=== PATIENT | male | born 1940 | race Caucasian/White ===

== ENCOUNTER → 2017-03-28 | Outpatient (CLI) | payer BC ==
[2017-03-28] MEDS: GADOBUTROL 7.5 MMOL/7.5 ML VIAL IV (15:40)
== END | disposition home or self-care (01) ==
LOC: KCIC MRI 14:34
DX: M47.897 Other spondylosis, lumbosacral region (principal); M24.28 Disorder of ligament, vertebrae; Z91.81 History of falling
CPT/HCPCS: 72158; A9585

== ENCOUNTER → 2017-04-18 | Outpatient (CLI) | payer BC ==
[~2017-04-18] MED LIST: BUPIVACAINE MPF 0.25% 10 ML VIAL.; methylPREDNISolone ACETATE 40 MG/ML VIAL.
== END ==
LOC: PNCL 12:42
DX: M79.1 Myalgia (principal); M19.90 Unspecified osteoarthritis, unspecified site; J44.9 Chronic obstructive pulmonary disease, unspecified
CPT/HCPCS: 20553; J1030; J3490

== ENCOUNTER → 2017-04-25 | Outpatient (CLI) | payer BC | END | disposition home or self-care (01) | LOC: KCIC MRI 13:49 | DX: M48.54XA Collapsed vertebra, not elsewhere classified, thoracic region, initial encounter for fracture (principal) | CPT/HCPCS: 72146 ==

== ENCOUNTER → 2017-05-24 | Outpatient (CLI) | payer BC ==
[~2017-05-24] MED LIST changes: -BUPIVACAINE MPF 0.25% 10 ML VIAL.; +IOHEXOL 240 MG/ML 50ML VIAL.; +LIDOCAINE WITH 8.4% SOD BICARB 3 ML DISP.SYRIN.; -methylPREDNISolone ACETATE 40 MG/ML VIAL.
[2017-05-24 08:43] LABS: ADD MAN DIFF? NO
[2017-05-24 08:45] LABS: BASO # 0.1 x10^3/uL (0.0-0.2); BASO % 1 % (0-3); EOS # 0.3 x10^3/uL (0.0-0.7); EOS % 5 % (0-3); HEMATOCRIT 39.5 % (39.0-53.0); HEMOGLOBIN 12.9 g/dL (13.0-17.5); LYMPH # 3.1 x10^3/uL (1.0-4.8); LYMPH % 48 % (24-48); MEAN CORPUSCULAR HEMOGLOBIN 30 pg (25-35); MEAN CORPUSCULAR HGB CONC 33 g/dL (31-37); MEAN CORPUSCULAR VOLUME 92 fL (79-100); MONO # 0.6 x10^3/uL (0.0-1.1); MONO % 9 % (0-9); NEUT # 2.3 x10^3uL (1.8-7.7); NEUT % 37 % (31-73); PLATELET COUNT 224 x10^3/uL (140-400); RED BLOOD COUNT 4.29 x10^6/uL (4.30-5.70); RED CELL DISTRIBUTION WIDTH 13.3 % (11.5-14.5); WHITE BLOOD COUNT 6.3 x10^3/uL (4.0-11.0)
[2017-05-24 08:55] LABS: PROTHROMBIN TIME PATIENT 12.3 SEC (11.7-14.0)
== END | disposition home or self-care (01) ==
LOC: INTRAD 08:18
DX: S22.000A Wedge compression fracture of unspecified thoracic vertebra, initial encounter for closed fracture (principal); X58.XXXA Exposure to other specified factors, initial encounter; Y93.89 Activity, other specified; Y92.89 Other specified places as the place of occurrence of the external cause; Y99.8 Other external cause status
CPT/HCPCS: 36415; 85025; 85610

== ENCOUNTER → 2017-05-30 | Outpatient (CLI) | payer BC ==
[~2017-05-30] MED LIST changes: +IOHEXOL 180 MG/ML 10 ML VIAL.; -IOHEXOL 240 MG/ML 50ML VIAL.; -LIDOCAINE WITH 8.4% SOD BICARB 3 ML DISP.SYRIN.; +methylPREDNISolone ACETATE 40 MG/ML VIAL.; +methylPREDNISolone ACETATE 80 MG/ML VIAL.
== END ==
LOC: PNCL 13:57
DX: S22.069A Unspecified fracture of T7-T8 vertebra, initial encounter for closed fracture (principal); M51.36 Other intervertebral disc degeneration, lumbar region; J44.9 Chronic obstructive pulmonary disease, unspecified; K21.9 Gastro-esophageal reflux disease without esophagitis; X58.XXXA Exposure to other specified factors, initial encounter; Y93.89 Activity, other specified; Y92.89 Other specified places as the place of occurrence of the external cause; Y99.8 Other external cause status
CPT/HCPCS: 62321; J1030; J1040; Q9965

== ENCOUNTER → 2017-06-13 | Outpatient (CLI) | payer BC | END | disposition home or self-care (01) | LOC: PNCL 13:27 | DX: M51.16 Intervertebral disc disorders with radiculopathy, lumbar region (principal); M48.54XA Collapsed vertebra, not elsewhere classified, thoracic region, initial encounter for fracture | CPT/HCPCS: 62323; J1030; J1040; Q9965 ==

== ENCOUNTER → 2017-08-14 | Outpatient (CLI) | payer BC | END | disposition home or self-care (01) | LOC: PNCL 09:32 | DX: M51.16 Intervertebral disc disorders with radiculopathy, lumbar region (principal); M48.54XA Collapsed vertebra, not elsewhere classified, thoracic region, initial encounter for fracture; M79.1 Myalgia; M51.34 Other intervertebral disc degeneration, thoracic region; J44.9 Chronic obstructive pulmonary disease, unspecified; K21.9 Gastro-esophageal reflux disease without esophagitis; Z88.1 Allergy status to other antibiotic agents; Z88.8 Allergy status to other drugs, medicaments and biological substances; Z98.890 Other specified postprocedural states | CPT/HCPCS: 62323; J1030; J1040; Q9965 ==

== ENCOUNTER 2017-11-09 19:49 | Emergency (ER) | payer BC ==
[~2017-11-09] VITALS: Ht 182.9 cm; Wt 79.4 kg
[~2017-11-09 19:49] MED LIST changes: +BUDE10.2 IH; +CARB15DR3 EACHEYE; +CHOL500016 PO; +FINA5TAB PO; +FLUT9.9S NS; -IOHEXOL 180 MG/ML 10 ML VIAL.; +LATA2.5D3 EACHEYE; +MELA5TAB21 PO; +MELO15TA23 PO; +MULT1TAB52 PO; +OMEP20CA9 PO; +POLY119P19 PO; +PRAV40TA PO; +RANI150T2 PO; +TAMS0.4C2 PO; +TIZA4TAB PO; +TRAM50TA PO; +VENTOLIN HFA18 GM INH; +VITA100020 PO; -methylPREDNISolone ACETATE 40 MG/ML VIAL.; -methylPREDNISolone ACETATE 80 MG/ML VIAL.
[2017-11-09] MEDS ORDERED: MECLIZINE HCL 12.5 MG TABLET. PO ONE (20:30)
[2017-11-09] MEDS ORDERED: ONDANSETRON PF 4 MG/2 ML VIAL. IV ONE (20:30)
[2017-11-09] MEDS ORDERED: IV NORMAL SALINE 1000ML BAG 1,000 ML IV ONE (20:30)
[2017-11-09 20:33] LABS: BASO # 0.1 x10^3/uL (0.0-0.2); BASO % 0 % (0-3); EOS # 0.1 x10^3/uL (0.0-0.7); EOS % 1 % (0-3); HEMATOCRIT 40.2 % (39.0-53.0); HEMOGLOBIN 13.4 g/dL (13.0-17.5); LYMPH # 2.4 x10^3/uL (1.0-4.8); LYMPH % 16 % (24-48); MEAN CORPUSCULAR HEMOGLOBIN 31 pg (25-35); MEAN CORPUSCULAR HGB CONC 33 g/dL (31-37); MEAN CORPUSCULAR VOLUME 93 fL (79-100); MONO % 7 % (0-9); NEUT # 11.4 x10^3uL (1.8-7.7); NEUT % 76 % (31-73); PLATELET COUNT 207 x10^3/uL (140-400); RED BLOOD COUNT 4.31 x10^6/uL (4.30-5.70); RED CELL DISTRIBUTION WIDTH 13.4 % (11.5-14.5)
[2017-11-09 20:55] LABS: CALCIUM 9.6 mg/dL (8.5-10.1); CREATININE 1.2 mg/dL (0.7-1.3); GFR 58.7; POTASSIUM 3.8 mmol/L (3.5-5.1)
[2017-11-09 21:00] LABS: ALBUMIN 4.2 g/dL (3.4-5.0); ALBUMIN/GLOBULIN RATIO 1.4 (1.0-1.7); TOTAL BILIRUBIN 0.7 mg/dL (0.2-1.0); TOTAL PROTEIN 7.3 g/dL (6.4-8.2)
[2017-11-09] MEDS ORDERED: KETOROLAC 15 MG/ML VIAL. IV ONE (21:30)
--- NOTE | 2017-11-09 21:51 | EKG ---
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
--- NOTE | 2017-11-09 22:03 | PHYS DOC ---
Past Medical History Past Medical History: COPD, GERD, High Cholesterol Past Surgical History: Other Additional Past Surgical Histo: SINUS, HERNIA, EGC, ESPHAGEAL STRETCHING Alcohol Use: None Drug Use: None Adult General Chief Complaint Chief Complaint: DIZZY/LIGHT HEADED HPI HPI Patient is a 76-year-old male who presents with complaint of dizziness, stating that he feels just off balance. He states that earlier today he had some episodes of nausea and vomiting and he states that right after his first episode of vomiting he noticed that he was very dizzy, feeling off balance. He denies any loss of consciousness. He states that the dizziness is worsened with change of position, especially with ambulation. He also indicates the dizziness is worsened with rapidly turning his head. He denies any chest pain or shortness of breath. He does admit to mild headache. He states that he has had purulent nasal discharge for quite some time, stating that his been at least several weeks. Review of Systems Review of Systems Constitutional: Denies fever or chills [] Eyes: Denies change in visual acuity, redness, or eye pain [] Respiratory: Denies cough or shortness of breath [] Cardiovascular: Denies chest pain[] GI: Denies abdominal pain. Complains of nausea and vomiting.[] Musculoskeletal: Patient complains of chronic muscle aches[] Neurologic: Complains of dizziness[] All other systems were reviewed and found to be within normal limits, except as documented in this note. Current Medications Current Medications Current Medications Medications (Trade) Dose Ordered Sig/Patti Start Time Stop Time Status Last Admin Dose Admin Amoxicillin/ Clavulanate Potassium (Augmentin 875/ 125mg) 1 tab 1X ONCE 11/09/17 22:30 11/09/17 22:31 DC 11/09/17 22:38 1 TAB Ketorolac Tromethamine (Toradol) 15 mg 1X ONCE 11/09/17 21:30 11/09/17 21:31 DC 11/09/17 21:25 15 MG Meclizine HCl (Antivert) 25 mg 1X ONCE 11/09/17 20:30 11/09/17 20:32 DC 11/09/17 20:41 25 MG Ondansetron HCl (Zofran) 4 mg 1X ONCE 11/09/17 20:30 11/09/17 20:32 DC 11/09/17 20:41 4 MG Sodium Chloride 1,000 ml @ 1,000 mls/hr 1X ONCE 11/09/17 20:30 11/09/17 21:29 DC 11/09/17 20:41 1,000 MLS/HR Tramadol HCl (Ultram) 50 mg 1X ONCE 11/09/17 22:30 11/09/17 22:31 DC 11/09/17 22:38 50 MG Allergies Allergies Allergies Coded Allergies Type Severity Reaction Last Updated Verified Sulfa (Sulfonamide Antibiotics) Allergy Intermediate Hives 05/24/17 Yes niacin Allergy Intermediate Hives 05/24/17 Yes Physical Exam Physical Exam Constitutional: Well developed, well nourished, no acute distress, non-toxic appearance. [] HENT: Normocephalic, atraumatic, bilateral external ears normal, oropharynx moist, no oral exudates, nose normal. Tender to percussion of frontal sinuses.[] Eyes: PERRLA, EOMI, conjunctiva normal, no discharge. [] Neck: Normal range of motion, no tenderness, supple, no stridor. [] Cardiovascular:Heart rate regular rhythm [] Lungs & Thorax: Bilateral breath sounds clear to auscultation [] Abdomen: Bowel sounds normal, soft, no tenderness. [] Skin: Warm, dry, no erythema, no rash. [] Extremities: No tenderness, no cyanosis, no clubbing, ROM intact, no edema. [] Neurologic: Alert and oriented X 3, normal motor function, normal sensory function, no focal deficits noted. [] Current Patient Data Vital Signs Vital Signs Date Time Temp Pulse Resp B/P (MAP) Pulse Ox O2 Delivery O2 Flow Rate FiO2 11/09/17 22:13 75 18 95 11/09/17 20:05 99.3 133/58 (83) Room Air 99.3 Lab Values Laboratory Tests Test 11/09/17 20:20 White Blood Count 15.0 x10^3/uL (4.0-11.0) H Red Blood Count 4.31 x10^6/uL (4.30-5.70) Hemoglobin 13.4 g/dL (13.0-17.5) Hematocrit 40.2 % (39.0-53.0) Mean Corpuscular Volume 93 fL (79-100) Mean Corpuscular Hemoglobin 31 pg (25-35) Mean Corpuscular Hemoglobin Concent 33 g/dL (31-37) Red Cell Distribution Width 13.4 % (11.5-14.5) Platelet Count 207 x10^3/uL (140-400) Neutrophils (%) (Auto) 76 % (31-73) H Lymphocytes (%) (Auto) 16 % (24-48) L Monocytes (%) (Auto) 7 % (0-9) Eosinophils (%) (Auto) 1 % (0-3) Basophils (%) (Auto) 0 % (0-3) Neutrophils # (Auto) 11.4 x10^3uL (1.8-7.7) H Lymphocytes # (Auto) 2.4 x10^3/uL (1.0-4.8) Monocytes # (Auto) 1.0 x10^3/uL (0.0-1.1) Eosinophils # (Auto) 0.1 x10^3/uL (0.0-0.7) Basophils # (Auto) 0.1 x10^3/uL (0.0-0.2) Sodium Level 136 mmol/L (136-145) Potassium Level 3.8 mmol/L (3.5-5.1) Chloride Level 100 mmol/L (98-107) Carbon Dioxide Level 27 mmol/L (21-32) Anion Gap 9 (6-14) Blood Urea Nitrogen 10 mg/dL (8-26) Creatinine 1.2 mg/dL (0.7-1.3) Estimated GFR (Cockcroft-Gault) 58.7 BUN/Creatinine Ratio 8 (6-20) Glucose Level 121 mg/dL (70-99) H Calcium Level 9.6 mg/dL (8.5-10.1) Magnesium Level 2.0 mg/dL (1.8-2.4) Total Bilirubin 0.7 mg/dL (0.2-1.0) Aspartate Amino Transferase (AST) 19 U/L (15-37) Alanine Aminotransferase (ALT) 20 U/L (16-63) Alkaline Phosphatase 75 U/L (46-116) Creatine Kinase 204 U/L (39-308) Troponin I Quantitative < 0.017 ng/mL (0.000-0.055) Total Protein 7.3 g/dL (6.4-8.2) Albumin 4.2 g/dL (3.4-5.0) Albumin/Globulin Ratio 1.4 (1.0-1.7) Laboratory Tests 11/09/17 20:20 Laboratory Tests 11/09/17 20:20 EKG EKG [] Interpretation Time: EKG demonstrates a normal sinus rhythm with rate of 83. No ST segment abnormalities are noted. Radiology/Procedures Radiology/Procedures [] Impressions: Chest x-ray demonstrates no acute process. Course & Med Decision Making Course & Med Decision Making Pertinent Labs and Imaging studies reviewed. (See chart for details) [] Dragon Disclaimer Dragon Disclaimer This electronic medical record was generated, in whole or in part, using a voice recognition dictation system. Departure Departure Impression: Primary Impression: Sinusitis Additional Impression: Vertigo Disposition: HOME, SELF-CARE Condition: STABLE Referrals: PEGGY MCCLOUD MD (PCP) Patient Instructions: Sinusitis, Vertigo Additional Instructions: Take prescribed medications as directed and follow-up with your primary care provider in the next few days. Scripts Amoxicillin/Potassium Clav (AUGMENTIN 875-125 TABLET) 1 Each Tablet 1 TAB PO BID, #20 TAB Prov: MELO BECK Jr. DO 11/09/17 Meclizine Hcl (MECLIZINE HCL) 25 Mg Tablet 25 MG PO PRN TID PRN for DIZZINESS, #30 dizziness Prov: MELO BECK Jr. DO 11/09/17 Ondansetron Hcl (ZOFRAN) 4 Mg Tablet 4 MG PO PRN TID PRN for NAUSEA/VOMITING, #15 nausea/vomiting Prov: MELO BECK Jr. DO 11/09/17 Problem Qualifiers Primary Impression: Sinusitis Sinusitis location: frontal Chronicity: unspecified Qualified Codes: J32.1 - Chronic frontal sinusitis MELO BECK Jr. DO Nov 09, 2017 22:03
--- NOTE | 2017-11-09 22:06 | RAD ---
AP chest. HISTORY: Dizziness, near syncope AP view was taken of the chest. There is mild scoliosis and degenerative change in the spine. The patient is rotated to the left. There is no effusion. Heart is normal in size. There are no confluent areas of infiltrate. IMPRESSION: 1. No confluent infiltrates. Electronically signed by: Patricio Ocampo MD (11/09/2017 10:03 PM) [facility]
[2017-11-09] MEDS ORDERED: AMOXICILLIN/K CLAV 875/125MG TABLET. PO ONE (22:30)
[2017-11-09] MEDS ORDERED: traMADol 50 MG TABLET PO ONE (22:30)
[2017-11-09 22:43] VITALS: BP 140/79
[2017-11-09] MEDS ORDERED: MECL25TA3 PO (22:54)
[2017-11-09] MEDS ORDERED: ONDA4TAB7 PO (22:54)
[2017-11-09] MEDS ORDERED: AMOX1TAB61 PO (22:54)
== END 2017-11-09 23:00 | disposition home or self-care (01) ==
LOC: ER 19:49
DX: J32.1 Chronic frontal sinusitis (principal); R42 Dizziness and giddiness; K21.9 Gastro-esophageal reflux disease without esophagitis; J44.9 Chronic obstructive pulmonary disease, unspecified; E78.00 Pure hypercholesterolemia, unspecified; Z88.1 Allergy status to other antibiotic agents; Z88.2 Allergy status to sulfonamides
CPT/HCPCS: 36415; 71045; 80053; 82550; 83735; 84484; 85025; 93005; 96361; 96374; 96375; 99285; J1885; J2405; J7030; J8597

== ENCOUNTER → 2018-07-09 | Outpatient (CLI) | payer BC ==
[~2018-07-09] MED LIST changes: +AMOX1TAB61 PO; +IOHEXOL 180 MG/ML 10 ML VIAL. ONE; +MECL25TA3 PO; +OMEP20CA10 PO; -OMEP20CA9 PO; +ONDA4TAB7 PO; +methylPREDNISolone ACETATE 40 MG/ML VIAL. ONE; +methylPREDNISolone ACETATE 80 MG/ML VIAL. ONE
--- NOTE | 2018-07-09 23:15 | PAIN ---
DATE OF SERVICE: 07/09/2018 DIAGNOSES: 1. Thoracic compression fracture with thoracic degenerative disk disease. 2. Lumbar radiculopathy with lumbar degenerative disk disease. HISTORY OF PRESENT ILLNESS: The patient is still a 77-year-old male, who returns for followup, last seen 08/14/2017. The patient did very well after 3 epidural injections since last winter and spring and summer. The patient reports about 80% improvement for about 10 months after the last injection. Pain is returning now in the low back, right lower extremity, posterior gluteus, posterior thigh, posterior calf. The patient reports it is a 10 on a scale of 10 at its worst, 9 on average, 7 at its least, sharp, stabbing, becoming more constant, worse with walking, standing, changing positions, better with sitting or lying down, awakens him from sleep occasionally, but only over the past month or so in about every 6-7 hours. The patient reports he is increasing his distance walking, doing activities at home, traveling with greater ease and comfort, sleeping better until the last few weeks when the pain has returned. The patient reports no new motor or sensory deficits, no new bowel or bladder incontinence or other complaints. PHYSICAL EXAMINATION: VITAL SIGNS: The patient's blood pressure 120/65, pulse 71, respirations are 20, temperature is 98.0 degrees Fahrenheit, height is 5 feet 11 inches, weight is 179 pounds. GENERAL: The patient is awake, alert, oriented, appropriate, very pleasant demeanor. HEENT: Shows normocephalic, atraumatic. Extraocular movements intact and symmetrical. Oral cavity: Mucous membranes are moist and pink. Dentition is intact. NECK: Shows anterior throat supple without palpable lymphadenopathy noted. Swallow reflex is symmetrical. CHEST: Shows normal on inspection. Breath sounds are clear to auscultation bilaterally. HEART: Shows S1, S2 clear. No murmurs auscultated. ABDOMEN: Soft, nontender, nondistended. No palpable organomegaly is noted. No rebound or guarding demonstrated. BACK: Shows spine grossly in the midline. Normal appearing thoracic kyphosis and lumbar lordotic curvature. Lumbar paraspinous muscle shows symmetrical on inspection. On palpation shows some moderate tenderness diffusely throughout the upper, middle and lower distribution of paraspinous muscles, but only diffusely without radiation. The patient has good rotational motion both laterally greater than 10 degrees right and left as well as extension greater than 10 degrees, forward flexion 45 degrees without significant pain reported. EXTREMITIES: The patient's lower extremities show deep tendon reflexes 1+ in the patellar and tendo calcaneus tendons are equal. Motor exam is strong with 5/5 dorsiflexion, extension, quadriceps and hamstring flexion and symmetrical. Peripheral pulses are 1+ in the posterior tibia. No peripheral edema is noted bilaterally. Options were discussed with the patient. The patient's old chart was reviewed as was his current medication regimen updated. Current review of systems is updated today as well. We will proceed with the first in the series of lumbar epidural steroid injection today with fluoroscopic guidance. Risks were again discussed including, but not limited to bleeding, infection, possibility of epidural hematoma, subsequent neurological compromise, dural puncture, headaches, spinal cord and/or nerve damage, side effects of steroid medication and poor results regarding pain control. The patient understands and wished to proceed. The patient will return to the clinic in approximately 2 weeks for followup, was counseled on return appointment, activity level, and side effects to be aware of. DIAGNOSIS: Lumbar degenerative disk disease with lumbosacral radiculopathy. PROCEDURE: Lumbar epidural steroid injection, translaminar approach at L5-S1 level using C-arm fluoroscopic guidance under sterile prep and drape using local anesthetic. MEDICATION INJECTED: A total of 120 mg Depo-Medrol plus 10 mL of preservative-free firm saline and 2 mL of contrast. CONDITION AT DISCHARGE: Stable. The patient tolerated the procedure well, had no complications. MARY ANN STANTON MD DR: KIESHA/steve JOB#: [id number] / [id number]
== END | disposition home or self-care (01) ==
LOC: PNCL 10:09
PROVIDERS: ATTEND Anesthesiology
DX: M51.16 Intervertebral disc disorders with radiculopathy, lumbar region (principal); M51.14 Intervertebral disc disorders with radiculopathy, thoracic region; M48.54XA Collapsed vertebra, not elsewhere classified, thoracic region, initial encounter for fracture; Z88.2 Allergy status to sulfonamides; Z88.1 Allergy status to other antibiotic agents
CPT/HCPCS: 62323; J1030; J1040; Q9965

== ENCOUNTER → 2018-11-11 | Outpatient (CLI) | payer BC ==
[2018-09-23 11:05] VITALS: BP 126/69
[~2018-11-11] MED LIST changes: +APIX5TAB PO; -IOHEXOL 180 MG/ML 10 ML VIAL. ONE; +METO25TA4 PO; -TIZA4TAB PO; +TIZA4TAB2 PO; -methylPREDNISolone ACETATE 40 MG/ML VIAL. ONE; -methylPREDNISolone ACETATE 80 MG/ML VIAL. ONE
--- NOTE | 2018-11-11 12:37 | PN ---
DATE: 11/11/2018 PROGRESS NOTE FOR PAIN CLINIC DIAGNOSES: 1. Thoracic compression fracture with degenerative disk disease, thoracic spine. 2. Myofascial pain. 3. Lumbar radiculopathy with lumbar degenerative disk disease. HISTORY OF PRESENT ILLNESS: The patient is a 77-year-old male who returns for followup status post lumbar epidural steroid injection, most recently on 07/09/2018. The patient reports he did very well with this and had about 80% improvement until about 2 weeks ago, the patient was unloading a linoleum tile floor layer from his truck and the linoleum tile floor layer weight got away from him and it flipped him over onto his back as he fell on the ground on his right side. The patient reports the pain returned in his low back about a day later and radiating to posterior gluteus, posterior thigh, posterior calf, as it was previously similar to that prior to his last injection. The patient reports the pain at 9 on a scale of 10 at its worst in the past week, 8 on average, 5 at its least and is at 5 today. The patient reports it is sharp, stabbing, shooting, and becoming severe with weightbearing, standing and walking. The patient reports otherwise doing better with sitting or lying down, does not awaken him from sleep at night. No new motor or sensory deficits or other complaints. Again, was doing very well until he fell. PHYSICAL EXAMINATION: VITAL SIGNS: The patient's blood pressure 107/53, pulse 58, respirations 18, temperature 98.2 degrees Fahrenheit, height is 5 feet 11 inches, weight is 175 pounds. GENERAL: The patient is awake, alert, oriented, appropriate, very pleasant demeanor. HEENT: Shows normocephalic, atraumatic. The patient wears eye glasses. Extraocular movements are intact and symmetrical. Oral cavity: Mucous membranes are moist and pink. Dentition is intact. NECK: Shows anterior throat supple without palpable lymphadenopathy noted. Swallow reflex symmetrical. CHEST: Shows normal on inspection. Breath sounds are clear to auscultation bilaterally. HEART: Shows S1, S2 clear. No murmurs auscultated. ABDOMEN: Soft, nontender, nondistended. No palpable organomegaly is noted. No rebound or guarding demonstrated. BACK: Shows spine grossly in the midline. Normal appearing thoracic kyphosis and minor flattening of lumbar lordotic curvature. Lumbar paraspinous muscle shows symmetrical on inspection. On palpation shows some moderate tenderness diffusely bilaterally, but only diffusely without radiation. The patient has good rotational motion of lumbar spine, both laterally as well as extension and flexion without difficulty. EXTREMITIES: Lower extremities show deep tendon reflexes at 1+ in the patellar and tendo calcaneus tendons. Motor exam is approximately 5 on a scale of 5 and equal dorsiflexion, extension, quadriceps and hamstring flexion. Peripheral pulses are 1+ posterior tibial. No peripheral edema is noted. Options were discussed with the patient. The patient's old chart was reviewed as his current medication regimen updated. Current review of systems updated today as well. We will check with the patient's primary physician as he has been recently put on Eliquis about 3 weeks ago by his report and see if it is safe to hold this for about 3 days prior to potential lumbar epidural steroid injection. He has done very well with these. We will wait for preapproval with his primary physician regarding holding the Eliquis. I will have return potentially after that for lumbar epidural steroid injection. The patient understands and agrees and will follow up as scheduled. MARY ANN STANTON MD DR: KIESHA/steve JOB#: [id number] / [id number]
== END | disposition home or self-care (01) ==
LOC: PNCL 08:31
PROVIDERS: ATTEND Anesthesiology
DX: M51.16 Intervertebral disc disorders with radiculopathy, lumbar region (principal); M51.34 Other intervertebral disc degeneration, thoracic region; M48.54XA Collapsed vertebra, not elsewhere classified, thoracic region, initial encounter for fracture; M54.5 Low back pain; M79.18 Myalgia, other site
CPT/HCPCS: G0463

== ENCOUNTER → 2018-11-25 | Outpatient (CLI) | payer BC ==
[2018-09-23 11:05] VITALS: BP 126/69
[~2018-11-25] MED LIST changes: +IOHEXOL 180 MG/ML 10 ML VIAL. ONE; +methylPREDNISolone ACETATE 40 MG/ML VIAL. ONE; +methylPREDNISolone ACETATE 80 MG/ML VIAL. ONE
--- NOTE | 2018-11-25 23:59 | PAIN ---
DATE OF SERVICE: 11/25/2018 PROGRESS NOTE FOR PAIN CLINIC DIAGNOSES: 1. Thoracic compression fracture T7 with thoracic degenerative disease. 2. Myofascial pain. 3. Lumbar radiculopathy with lumbar degenerative disk disease. HISTORY OF PRESENT ILLNESS: This is a 77-year-old male who returns for followup status post lumbar epidural steroid injection x 1 on 07/09/2018. The patient reports about 80% improvement in the pain. The pain is returning now. 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 The patient reports pain in low back into the right greater than left lower extremity, posterior gluteus, posterior thigh and calf, worse with walking, standing, changing positions, better with sitting or lying down. The patient reports it has been awakening him from sleep occasionally, but most nights, he sleeps fairly well. The patient reports it is worse with walking and standing. The patient rates his pain as a 9 on a scale of 10 at its worst, 9 on average, 3 at its least when he is sitting and is a 3 today. The patient reports it is sharp, stabbing, constant, on and off in intensity with sitting and walking being more painful with walking and less with sitting. The patient reports no new motor or sensory deficits, no new bowel or bladder incontinence or other complaints. PHYSICAL EXAMINATION: VITAL SIGNS: The patient's blood pressure 112/69, pulse 52, respirations are 18, temperature 98.0 degrees Fahrenheit, height is 5 feet 11 inches, weight is 174 pounds. GENERAL: The patient is awake, alert, oriented, appropriate, very pleasant demeanor. HEENT: Shows normocephalic, atraumatic. Extraocular movements are intact and symmetrical. Oral cavity: Mucous membranes moist and pink. Dentition is intact. The patient is wearing eyeglasses. NECK: Shows anterior throat supple without palpable lymphadenopathy noted. Swallow reflex symmetrical. CHEST: Shows normal on inspection. Breath sounds are clear to auscultation bilaterally. HEART: Shows S1, S2 clear. No murmurs auscultated. ABDOMEN: Soft, nontender, nondistended. No palpable organomegaly is noted. No rebound or guarding demonstrated. BACK: Shows spine grossly in the midline. Normal-appearing thoracic kyphosis, some minor flattening of lumbar lordotic curvature. Lumbar paraspinous muscle shows symmetrical on inspection, with palpation shows some moderate tenderness diffusely throughout the upper, middle and lower distribution of paraspinous muscles, but only diffusely without radiation, without asymmetry or trigger points. No radiation of pain with rotational motion, which is performed greater than 10 degrees right and left as well as extension greater than 10 degrees, forward flexion 40 degrees without difficulty. EXTREMITIES: Lower extremities show deep tendon reflexes 1+ in the patellar and tendoalcaneus tendons. Motor exam is approximately 5/5, but symmetrical with dorsiflexion, extension, quadriceps and hamstring flexion. Peripheral pulses are 1+ posterior tibia. No peripheral edema is noted bilaterally. Options were discussed with the patient. The patient's old chart was reviewed as his current medication regimen updated. Current review of systems updated today as well. We will proceed with a lumbar epidural steroid injection, second in the series, with fluoroscopic guidance today. Risks were again discussed including, but not limited to bleeding, infection, possibility of epidural hematoma, subsequent neurologic compromise, dural puncture, headaches, spinal cord and/or nerve damage, side effects of steroid medication and poor results regarding pain control. The patient understands and wished to proceed. The patient will return to clinic in approximately 2 weeks for followup. She was counseled on return appointment, activity level and side effects to be aware of. DIAGNOSIS: Lumbar radiculopathy with lumbar degenerative disk disease. PROCEDURE: Lumbar epidural steroid injection, translaminar approach L5-S1 level using C-arm fluoroscopic guidance under sterile prep and drape using local anesthetic. MEDICATION INJECTED: A total of 120 mg Depo-Medrol plus 10 mL of preservative-free normal saline and 2 mL of contrast. CONDITION AT DISCHARGE: Stable. The patient tolerated procedure well, had no complications. MARY ANN STANTON MD DR: KIESHA/steve JOB#: [id number] / [id number]
== END ==
LOC: PNCL 14:10
PROVIDERS: ATTEND Anesthesiology
DX: M51.16 Intervertebral disc disorders with radiculopathy, lumbar region (principal); M51.34 Other intervertebral disc degeneration, thoracic region
CPT/HCPCS: 62323; J1030; J1040; Q9965

== ENCOUNTER → 2019-01-19 | Outpatient (CLI) | payer BC ==
[2018-09-23 11:05] VITALS: BP 126/69
[~2019-01-19] MED LIST changes: -IOHEXOL 180 MG/ML 10 ML VIAL. ONE; +REGADENOSON 0.4 MG/5 ML DISP.SYRIN. IV ONE; -methylPREDNISolone ACETATE 40 MG/ML VIAL. ONE; -methylPREDNISolone ACETATE 80 MG/ML VIAL. ONE
--- NOTE | 2019-01-19 14:45 | RAD ---
MR#: [id number] Date of Study: 01/19/2019 Ordering Physician: ALYSHA HOLDER Referring Physician: JUAN RAMON BRYANT Tech: RT Alyce (Yeni) (N) APPROVED REPORT Test Type: Pharmacological Stress Nurse/Tech: Yulissa Olmos R.N. Test Indications: elevated troponin Cardiac History: Afib,htn Medications: See Electronic Medical Record Medical History: See Electronic Medical Record Resting ECG: SB w/ tall T waves Resting Heart Rate: 58 bpm Resting Blood Pressure: 145/70mmHg Pretest Chest Pain: No chest pain Nurse/Tech Notes S1S2, lungs wheezing on left side. Consent: The procedure was explained to the patient in lay terms. Informed consent was witnessed. Bhavik eout was entered into [employer]. History and Stress Test performed by SANYA Whitley Pharm. Details Pharmacologic stress testing was performed using 0.4mg per 5ml of regadenoson given intravenously ove r 7-10 seconds. Stress Symptoms SOA, stomach cramping POST EXERCISE Reason for Termination: Infusion complete Max HR: 86 bpm Max Blood Pressure: 130/57mmHg Blood Pressure response to exercise: Normal blood pressure response during stress. Heart Rate response to exercise: wnl Chest Pain: No. Arrhythmia: No. ST Change: No. INTERPRETATION Stress EKG Conclusion: Baseline EKG showed sinus rhythm. No ischemic changes at peak stress. No arr hythmias. Imaging Protocol IMAGE PROTOCOL: Rest Tc-99m/stress Tc-99m 1 day Rest: Stress: Viability: Radiopharm.Tc99m DdzfsoubjMw12i Sestamibi Pnew89bMw 33mCi Duration 15min. 10min. Img Date 01/19/2019 01/19/2019 Inj-Img Wvep30urm. 60min. Rest Admin Site:IV - Left AntecubitalAdministrator:SANYA Whitley Stress Admin Site: IV - Left AntecubitalAdministrator: SANYA Whitley STRESS DATA End Diast. Vol.107.0mlAv. Heart Rate72.0bpm End Syst. Vol.26.0mlCO Index BSA0.0L/min Myocardial Mmkp538.0gEject. Tnmkigil78.0% Stress Rates Pk. Fill Rate2.69EDV/secLVtime Pk. Fill 107.34msec Pk. Empty Rate3.58ESV/secLVtime Pk. Nzifr405.96msec 1/3 Pk. Fill1.76EDV/sec Stress Scores Regional WT0.00Summed WT0.00 Regional WM0.00Summed WM0.00 Study quality was good. Left Ventricular size was Normal at Rest and Stress. Lung uptake was . Left Ventricular ejection fraction is 76%. The rest and stress images show normal perfusion, normal contraction and thickening. LV Perf. Quant 17 Seg. SSS1.00 17 Seg. SRS0.00 17 Seg. SDS1.00 Stress Defect Extent (% LAD)0.00Rest Defect Extent (% LAD)0.00Rev. Defect Extent (% LAD)0.00 Stress Defect Extent (% LCX) 0.00Rest Defect Extent (% LCX)0.00Rev. Defect Extent (% LCX)0.00 Stress Defect Extent (% RCA)0.00Rest Defect Extent (% RCA)0.00Rev. Defect Extent (% RCA)0.00 Stress Defect Extent (% CORRINE)0.00Rest Defect Extent (% CORRINE)0.00Rev. Defect Extent (% CORRINE)0.00 Conclusion 1. Regadenoson cardioisotope stress test did not show any evidence of ischemia or infarct. 2. Normal left ventricular systolic function with ejection fraction calculated at 76%. 3. Low risk for cardiac events. Signed by : Alysha Holder, Electronically Approved : 01/19/2019 14:44:55
== END | disposition home or self-care (01) ==
LOC: NM 09:59
PROVIDERS: ATTEND Internal Medicine Cardiovascular Disease
DX: I25.10 Atherosclerotic heart disease of native coronary artery without angina pectoris (principal); I48.91 Unspecified atrial fibrillation; I10 Essential (primary) hypertension; R79.89 Other specified abnormal findings of blood chemistry
CPT/HCPCS: 78452; 93017; A9500; J2785

== ENCOUNTER → 2019-01-23 | Outpatient (CLI) | payer BC ==
[2018-09-23 11:05] VITALS: BP 126/69
[~2019-01-23] MED LIST changes: +BUPIVACAINE MPF 0.25% 10 ML VIAL. ONE; +DULA0.75 SQ; -REGADENOSON 0.4 MG/5 ML DISP.SYRIN. IV ONE; +methylPREDNISolone ACETATE 40 MG/ML VIAL. ONE
--- NOTE | 2019-01-23 13:01 | PAIN ---
DATE OF SERVICE: 01/23/2019 PROGRESS NOTE FOR PAIN CLINIC DIAGNOSES: 1. Compression fracture T7 with degenerative disk disease, thoracic spine. 2. Myofascial pain. 3. Lumbar radiculopathy with lumbar degenerative disk disease. HISTORY OF PRESENT ILLNESS: The patient is a 78-year-old male who returns for followup status post lumbar epidural steroid injection x 2, most recently 11/25/2018. The patient did about 80% better. The patient reports the pain is returning now but is somewhat different. He has seen his orthopedic surgeon as he is worried about his previous pelvic injury, but new x-ray showed no fractures or displacement. The patient is having some significant pain; however, mostly in the right lower back and hip, but some on the left as well. The patient reports it is worse with walking, standing, changing positions. He is noticing that leaning forward while he is walking is afraid of falling and stumbling. The patient reports it is a stabbing pain, it is aching and sharp in the back itself, constant, unbearable at times walking in the pelvis and low back, middle of the back on the right side as well under his shoulder blade can hurt sometimes when he is walking as well. The patient reports pain is 9 on a scale of 10 at its worst, 8 on average, 5 at its least and is 8 today. The patient reports no loss of motor function, no bowel or bladder incontinence and does not awaken him from sleep at night, much better with lying down. PHYSICAL EXAMINATION: VITAL SIGNS: The patient's blood pressure 115/65, pulse 55, respirations 16, temperature 98.2 degrees Fahrenheit, height is 5 feet 11 inches, weight is 178 pounds. GENERAL: The patient is awake, alert, oriented, appropriate, very pleasant demeanor. HEENT: Head shows normocephalic, atraumatic. Extraocular movements are intact and symmetrical. Oral cavity: Mucous membranes moist and pink. Dentition is intact. NECK: Shows anterior throat supple without palpable lymphadenopathy noted. Swallow reflex symmetrical. CHEST: Shows normal on inspection. Breath sounds are clear bilaterally. HEART: Shows S1, S2 clear. No murmurs auscultated. ABDOMEN: Soft, nontender, nondistended. No palpable organomegaly is noted. No rebound or guarding demonstrated. BACK: Shows spine grossly in the midline, slight increase in thoracic kyphosis and minor flattening of lumbar lordotic curvature. Lumbar paraspinous muscle shows symmetrical on inspection, with palpation, shows some very firm rope-like musculature in the right low lumbar paraspinous muscles consistent with trigger point areas of musculature. This is true into the right gluteus as well as the lateral aspect of the superior aspect of the right iliac crest and just inferior to this. Also, over the posterior superior iliac spine with some mild tenderness, left side shows some moderate tenderness as well in the lumbar paraspinous musculature with rope-like musculature, which is significantly tender as well, but without radiation on either side with palpation. The patient has good rotational motion of lumbar spine, both laterally as well as extension and flexion without significant pain reported. No tenderness over the sacroiliac regions bilaterally or the sacrum. EXTREMITIES: The patient's lower extremities show deep tendon reflexes at 1+ in the patellar and tendo calcaneus tendons. Motor exam is 5/5 with dorsiflexion, extension, quadriceps and hamstring flexion and symmetrical. Peripheral pulses are 1+ posterior tibia. No peripheral edema is noted bilaterally. Options were discussed with the patient. The patient's old chart was reviewed as his current medication regimen updated. Current review of systems updated today as well. We will proceed with trigger point injections of the identified musculature. Risks were again discussed including, but not limited to bleeding, infection, possibility of intravascular injection sequelae, spread of local anesthetic and numbness, side effects of steroid medication and poor results regarding pain control. The patient understands and wished to proceed. The patient will return to clinic in approximately 2 weeks for followup. He was counseled on return appointment interval and side effects to be aware of. The patient will restart Eliquis tomorrow and will be returning for a lumbar epidural steroid injection and hold the Eliquis for 3 days prior to that as well. DIAGNOSIS: Myofascial pain. PROCEDURE: Trigger point injections, bilateral lumbar paraspinous musculature and right gluteus musculature under sterile prep and drape using local anesthetic. MEDICATION INJECTED: A total of 40 mg Depo-Medrol plus a total of 6 mL 0.25% bupivacaine after negative aspiration at each injection site. CONDITION AT DISCHARGE: Stable. The patient tolerated the procedure well, had no complications. MARY ANN STANTON MD DR: Jesse JOB#: [id number] / [id number]
== END ==
LOC: PNCL 11:07
PROVIDERS: ATTEND Anesthesiology
DX: M79.18 Myalgia, other site (principal); M51.16 Intervertebral disc disorders with radiculopathy, lumbar region; M48.54XA Collapsed vertebra, not elsewhere classified, thoracic region, initial encounter for fracture; M51.34 Other intervertebral disc degeneration, thoracic region
CPT/HCPCS: 20553; J1030; J3490

== ENCOUNTER → 2019-01-29 | Outpatient (CLI) | payer BC ==
[2018-09-23 11:05] VITALS: BP 126/69
[~2019-01-29] MED LIST changes: -BUPIVACAINE MPF 0.25% 10 ML VIAL. ONE; +IOHEXOL 180 MG/ML 10 ML VIAL. ONE; +methylPREDNISolone ACETATE 80 MG/ML VIAL. ONE
--- NOTE | 2019-01-29 10:35 | PAIN ---
DATE OF SERVICE: 01/29/2019 PROGRESS NOTE FOR PAIN CLINIC DIAGNOSES: 1. Compression fracture, T7. 2. Myofascial pain. 3. Lumbar radiculopathy with lumbar degenerative disk disease. SUBJECTIVE: The patient is a 78-year-old male who returns for followup status post lumbar epidural steroid injections x 2 and trigger point injections on his last visit. The patient reports about 90% improvement after the injections at his last visit, but the pain is now returning in the low back and right lower extremity as it was previously. We discussed on his last visit for his return today for potential third lumbar epidural steroid injection and indeed he is having some radicular pain in the posterior gluteus, posterior thigh and even into the calf at times on the right side. The patient reports it is stabbing, sharp, constant at times with standing or walking, better with sitting or lying down, does not awaken him from sleep at night. The patient rates his pain as a 9 on a scale of 10 at its worst over the past week, 9 on average, 3 at its least and is a 9 today. The patient reports no new motor or sensory deficits, no bowel or bladder incontinence or other complaints. PHYSICAL EXAMINATION: VITAL SIGNS: The patient's blood pressure is 118/78, pulse is 77, respirations are 18, temperature is 98.3 degrees Fahrenheit. Height is 5 feet 11 inches. Weight is 173 pounds. GENERAL: The patient is awake, alert, oriented, appropriate, very pleasant demeanor. HEENT: Shows normocephalic, atraumatic. Extraocular movements are intact and symmetrical. Oral cavity: Mucous membranes moist and pink. Dentition is intact. NECK: Shows anterior throat supple without palpable lymphadenopathy noted. Swallow reflex symmetrical. CHEST: Shows normal on inspection. Breath sounds are clear to auscultation bilaterally. HEART: Shows S1 and S2 clear. No murmurs auscultated. ABDOMEN: Soft, nontender, nondistended. No palpable organomegaly is noted. No rebound or guarding demonstrated. BACK: Shows spine grossly in the midline. Normal appearing thoracic kyphosis and lumbar lordotic curvature. Lumbar paraspinous muscle shows symmetrical on inspection, on palpation shows some moderate tenderness diffusely, but only diffusely without significant radiation. The patient has good rotational motion of the lumbar spine without significant pain with right and left rotation as well as extension and flexion without significant difficulty. EXTREMITIES: The patient's lower extremities showed deep tendon reflexes 1+ in the patellar and tendo calcaneus tendons. Motor exam is strong with 5/5 dorsiflexion, extension, quadriceps and hamstring flexion and symmetrical. Peripheral pulses are 1+ to posterior tibia. No peripheral edema is noted. Options were discussed with the patient. The patient's old chart was reviewed as his current medication regimen updated. Current review of systems updated today as well. We will proceed with a third in the series of lumbar epidural steroid injection today with fluoroscopic guidance. Risks were again discussed including but not limited to bleeding, infection, possibility of epidural hematoma, subsequent neurologic compromise, dural puncture, headaches, spinal cord and/or nerve damage, side effects of steroid medication and poor results regarding pain control. The patient understands and wished to proceed. The patient will return to clinic in approximately 2 weeks for followup. He was counseled on return appointment, activity level and side effects to be aware of. DIAGNOSIS: Lumbar radiculopathy with lumbar degenerative disk disease. PROCEDURE: Lumbar epidural steroid injection, translaminar approach L5-S1 level using C-arm fluoroscopic guidance under sterile prep and drape using local anesthetic. MEDICATIONS INJECTED: A total of 120 mg Depo-Medrol plus 10 mL of preservative-free normal saline and 2 mL of contrast. CONDITION AT DISCHARGE: Stable. The patient tolerated procedure well, had no complications. MARY ANN STANTON MD DR: KIESHA/steve JOB#: [id number] / [id number]
== END ==
LOC: PNCL 09:41
PROVIDERS: ATTEND Anesthesiology
DX: M51.16 Intervertebral disc disorders with radiculopathy, lumbar region (principal); M79.18 Myalgia, other site; M48.54XA Collapsed vertebra, not elsewhere classified, thoracic region, initial encounter for fracture
CPT/HCPCS: 62323; J1030; J1040; Q9965

== ENCOUNTER → 2019-05-29 | Outpatient (CLI) | payer BC, OTHER ==
[2018-09-23 11:05] VITALS: BP 126/69
[~2019-05-29] MED LIST changes: -IOHEXOL 180 MG/ML 10 ML VIAL. ONE; +MECL-75 PO; -MECL25TA3 PO; -OMEP20CA10 PO; +OMEP20CA16 PO; -methylPREDNISolone ACETATE 40 MG/ML VIAL. ONE; -methylPREDNISolone ACETATE 80 MG/ML VIAL. ONE
--- NOTE | 2019-05-29 15:46 | KCIC ---
CT CHEST WO CONTRAST Indication: COPD, pulmonary hyperinflation, opacity left lung base Technique: Noncontrast CT imaging was performed of the chest, multiplanar reconstruction images submitted. One or more of the following individualized dose reduction techniques were utilized for this examination: 1. Automated exposure control 2. Adjustment of the mA and/or kV according to patient size 3. Use of iterative reconstruction technique. Comparison: There is no previous chest CT available, correlation made with chest radiograph September 19, 2018 Findings: There is moderate to severe emphysema. There is pleural thickening more posteriorly of the left upper lobe closer to the apex. There is left lower lobe endobronchial density with associated bronchial occlusion and degree of left lower lobe volume loss, best seen on image 40 series 3. More confluent focus of density in this region such as seen on image 40 series 3 measures about 1.7 cm transverse by 1.6 cm AP, some other adjacent foci of endobronchial density present. There is a focus of adjacent nodular appearing density image 42 about 1.7 cm. There is also mild bronchiectasis of the left upper lobe with adjacent likely mild fibrotic change. There is no pneumothorax, significant dependent pleural fluid, pericardial fluid. Heart is deviated to the left. Thoracic aortic caliber is within normal limits. There is compression deformity of the T7 vertebral body of uncertain chronicity. There is some other reticular likely fibrotic change of the left lower lobe. There is small noncalcified right middle lobe nodule along the minor fissure about 0.6 cm image 43 series 3. There are some small foci of branching nodularity of the superior left lower lobe, largest about 0.3 cm. IMPRESSION: 1. There is left lower lobe endobronchial density with bronchial occlusion and degree of volume loss, also focus of nodular density present. While findings could be a component of mucous plugging, endobronchial mass is possible for which PET CT and bronchoscopy is recommended. There is small right middle lobe nodule. There are also some small branching foci of nodularity of the superior left lower lobe which could be due to infectious or inflammatory etiologies. There is emphysema. 2.There is age indeterminate T7 compression deformity. Electronically signed by: Lokesh Ferris MD (05/29/2019 3:43 PM) [id number]
== END ==
LOC: KCIC CT 10:03
PROVIDERS: ATTEND Internal Medicine Pulmonary Disease
DX: J98.4 Other disorders of lung (principal); G95.29 Other cord compression; J44.9 Chronic obstructive pulmonary disease, unspecified
CPT/HCPCS: 71250

== ENCOUNTER → 2019-12-28 | Outpatient (CLI) | payer OTHER ==
[2018-09-23 11:05] VITALS: BP 126/69
[~2019-12-28] MED LIST changes: +MULT-445 PO; -MULT1TAB52 PO
--- NOTE | 2019-12-28 16:35 | KCIC ---
Examination: CT chest without contrast HISTORY: History of opacity left lower lobe of the lung COMPARISON: 05/29/2019 TECHNIQUE: Axial CT images of the chest were performed without contrast. Coronal and sagittal reformats are performed Exposure: One or more of the following individualized dose reduction techniques were utilized for this examination: 1. Automated exposure control 2. Adjustment of the mA and/or kV according to patient size 3. Use of iterative reconstruction technique FINDINGS: Mild cardiomegaly. Coronary artery calcifications. Moderate bilateral lung emphysematous changes. There is pleural thickening identified in the left upper lobe similar to prior exam. There is left lower lobe endobronchial density with the endobronchial occlusion and left lower lobe volume loss similar to prior exam now measuring 3.4 x 2.9 cm (prior 3.1 x 2.9 cm). Mild bronchiectasis bilateral lungs similar to prior exam. Faint tree-in-bud airspace opacities identified in the left upper lobe, left lower lobe, right middle lobe and the right lower lobe of the lung again identified. There is a 6 mm nodule identified in the right middle lobe lung similar to prior exam. The visualized noncontrasted liver, spleen, adrenals grossly appears unremarkable. Moderate degenerative changes thoracic spine. There is moderate compression change of T7 vertebra similar to prior exam. IMPRESSION: 1. Mild increase in size of the endobronchial density with bronchial occlusion of the left lower lobe of the lung. Consider PET-CT and bronchoscopy follow-up can be considered if not done previously. 2. Unchanged 6 mm nodule right middle lobe of the lung. 3. Multiple tree-in-bud airspace opacities identified in the bilateral lungs could be infectious or inflammatory etiology. Follow-up to resolution. Electronically signed by: Gucci Hough MD (12/28/2019 4:32 PM) [place] [id number]
== END | disposition home or self-care (01) ==
LOC: KCIC CT 14:04
PROVIDERS: ATTEND Internal Medicine Pulmonary Disease
DX: R91.1 Solitary pulmonary nodule (principal); J47.9 Bronchiectasis, uncomplicated; J43.9 Emphysema, unspecified
CPT/HCPCS: 71250

== ENCOUNTER 2020-01-01 20:02 | Emergency (ER) | payer OTHER ==
[~2020-01-01] VITALS: Ht 180.3 cm; Wt 80.9 kg
--- NOTE | 2020-01-01 20:15 | PHYS DOC ---
Past Medical History Past Medical History: COPD, GERD, High Cholesterol Past Surgical History: Other Additional Past Surgical Histo: SINUS, HERNIA,ESOPHAGEAL STRETCHING Smoking Status: Never Smoker Alcohol Use: None Drug Use: None General Adult EDM: Chief Complaint: CHEST PAIN HPI: HPI: Patient is a 79 year old male presents with 1 hour of chest pain that began in his thoracic area mostly on the right side that radiates to the front. Pain is 9 out of 10 described as sharp. Patient has some shortness of breath and nausea associated with this. Symptoms are worse with deep breath. Review of Systems: Review of Systems: Constitutional: Denies fever or chills. [] Eyes: Denies change in visual acuity. [] HENT: Denies nasal congestion or sore throat. [] Respiratory: Patient has shortness of breath and a chronic cough Cardiovascular: Denies chest pain or edema. [] GI: Denies abdominal pain, nausea, vomiting, bloody stools or diarrhea. [] : Denies dysuria. [] Musculoskeletal: Denies back pain or joint pain. [] Integument: Denies rash. [] Neurologic: Denies headache, focal weakness or sensory changes. [] Endocrine: Denies polyuria or polydipsia. [] Lymphatic: Denies swollen glands. [] Psychiatric: Denies depression or anxiety. [] Heart Score: HEART Score for Chest Pain: HEART Score for Chest Pain Response (Comments) Value History Moderately Suspicious 1 ECG Nonspecific Repolarizatio 1 Age > 65 2 Risk Factors >3 Risk Factors or Hx CAD 2 Total 6 Risk Factors: Risk Factors: DM, Current or recent (<one month) smoker, HTN, HLP, family history of CAD, obesity. Risk Scores: Score 0 - 3: 2.5% MACE over next 6 weeks - Discharge Home Score 4 - 6: 20.3% MACE over next 6 weeks - Admit for Clinical Observation Score 7 - 10: 72.7% MACE over next 6 weeks - Early Invasive Strategies Allergies: Allergies: Allergies Coded Allergies Type Severity Reaction Last Updated Verified Sulfa (Sulfonamide Antibiotics) Allergy Intermediate Hives 05/24/17 Yes niacin Allergy Intermediate Hives 05/24/17 Yes Physical Exam: PE: Constitutional: Well developed, well nourished, no acute distress, non-toxic appearance. [] HENT: Normocephalic, atraumatic, bilateral external ears normal, no trismus, nose normal. [] Eyes: PERRLA, EOMI, conjunctiva normal, no discharge. [] Neck: Normal range of motion, no tenderness, supple, no stridor. [] Cardiovascular:Heart rate regular rhythm, peripheral pulses intact, cap refill is brisk Lungs & Thorax: Bilateral breath sounds clear, no respiratory distress Abdomen: Bowel sounds normal, soft, no tenderness, no masses, no pulsatile masses. [] Skin: Warm, dry, no erythema, no rash. [] Back: No tenderness, no CVA tenderness. [] Extremities: No tenderness, no cyanosis, no clubbing, ROM intact, no edema. [] Neurologic: Alert and oriented X 3, normal motor function, normal sensory function, no focal deficits noted. [] Psychologic: Affect normal, judgement normal, mood normal. [] Current Patient Data: Labs: Laboratory Tests Test 01/01/20 20:20 White Blood Count 8.9 x10^3/uL Red Blood Count 3.84 x10^6/uL Hemoglobin 12.1 g/dL Hematocrit 35.4 % Mean Corpuscular Volume 92 fL Mean Corpuscular Hemoglobin 32 pg Mean Corpuscular Hemoglobin Concent 34 g/dL Red Cell Distribution Width 13.1 % Platelet Count 203 x10^3/uL Neutrophils (%) (Auto) 50 % Lymphocytes (%) (Auto) 37 % Monocytes (%) (Auto) 8 % Eosinophils (%) (Auto) 4 % Basophils (%) (Auto) 1 % Neutrophils # (Auto) 4.4 x10^3/uL Lymphocytes # (Auto) 3.3 x10^3/uL Monocytes # (Auto) 0.7 x10^3/uL Eosinophils # (Auto) 0.3 x10^3/uL Basophils # (Auto) 0.1 x10^3/uL Prothrombin Time 14.1 SEC Prothromb Time International Ratio 1.1 Activated Partial Thromboplast Time 33 SEC D-Dimer (Ayana) 4.65 ug/mlFEU Sodium Level 140 mmol/L Potassium Level 4.1 mmol/L Chloride Level 104 mmol/L Carbon Dioxide Level 30 mmol/L Anion Gap 6 Blood Urea Nitrogen 15 mg/dL Creatinine 1.3 mg/dL Estimated GFR (Cockcroft-Gault) 53.1 BUN/Creatinine Ratio 12 Glucose Level 92 mg/dL Calcium Level 9.2 mg/dL Magnesium Level 2.5 mg/dL Total Bilirubin 0.3 mg/dL Aspartate Amino Transf (AST/SGOT) 17 U/L Alanine Aminotransferase (ALT/SGPT) 14 U/L Alkaline Phosphatase 77 U/L Troponin I Quantitative < 0.017 ng/mL EG-Svg-T-Type Natriuretic Peptide 832 pg/mL Total Protein 7.6 g/dL Albumin 4.1 g/dL Albumin/Globulin Ratio 1.2 Lipase 65 U/L Current Medications Medications (Trade) Dose Ordered Sig/Patti Route PRN Reason Start Time Stop Time Status Last Admin Dose Admin Aspirin (Aspirin Chewable) 324 mg 1X ONCE PO 01/01/20 20:30 01/01/20 20:31 DC 01/01/20 21:17 Morphine Sulfate (Morphine Sulfate) 2 mg 1X ONCE IV 01/01/20 21:30 01/01/20 21:31 DC 01/01/20 21:27 Ondansetron HCl (Zofran) 4 mg 1X ONCE IVP 01/01/20 21:30 01/01/20 21:31 DC 01/01/20 21:27 Morphine Sulfate (Morphine Sulfate) 2 mg STK-MED ONCE .ROUTE 01/01/20 21:23 01/01/20 21:23 DC Iohexol (Omnipaque 350 Mg/ml) 70 ml 1X ONCE IV 01/01/20 21:45 01/01/20 21:46 DC 01/01/20 21:57 Info (CONTRAST GIVEN -- Rx MONITORING) 1 each PRN DAILY PRN MC SEE COMMENTS 01/01/20 21:45 01/03/20 21:44 Nicardipine HCl 50 mg/Sodium Chloride 250 ml @ 25 mls/hr CONT PRN IV SEE I/O RECORD 01/01/20 22:15 Vital Signs: Vital Signs Date Time Temp Pulse Resp B/P (MAP) Pulse Ox O2 Delivery O2 Flow Rate FiO2 01/01/20 21:27 22 98 Room Air 01/01/20 20:05 97.7 60 24 177/84 (115) 96 Room Air 97.7 EKG: EKG: [ EKG interpreted by me sinus bradycardia with a rate of 59 normal axis normal intervals peaked T waves in V4 and V5 Radiology/Procedures: Radiology/Procedures: [][facility] [address] [place] [address] IMAGING REPORT Signed PATIENT: KEVAN CÁRDENAS ACCOUNT: [id number] : 1940 LOCATION: ER AGE: 79 SEX: M EXAM STATUS: REG ER ORD. PHYSICIAN: ILAN COSME MD REASON: cp ER#1 PROCEDURE: PORTABLE CHEST 1V EXAM: PORTABLE CHEST 1V 01/01/2020 8:18 PM CLINICAL INDICATION: Chest pain COMPARISON: Chest radiograph 09/19/2018 TECHNIQUE: AP upright view of the chest FINDINGS: The heart and mediastinum are normal. There is mild left lung volume loss. There is new elevation of the left hemidiaphragm. Left retrocardiac opacities have increased. The right lung is clear. Probable small left pleural effusion. No pneumothorax. No acute osseous abnormality. IMPRESSION: New elevation of the left hemidiaphragm with increased left retrocardiac densities, likely atelectasis although pneumonia is possible. Electronically signed by: Jory Segovia MD (01/01/2020 9:04 PM) [id number] DICTATED and SIGNED BY: JORY SEGOVIA MD DATE: 01/01/202103 [facility] [address] [place] [address] IMAGING REPORT Signed PATIENT: KEVAN CÁRDENAS ACCOUNT: [id number] : 1940 LOCATION: ER AGE: 79 SEX: M EXAM STATUS: REG ER ORD. PHYSICIAN: ILAN COSME MD REASON: cp, OMNI 350, 70 ML IV PROCEDURE: CT ANGIOGRAPHY CHEST Exam: CT of chest with contrast INDICATION: Chest pain TECHNIQUE: Sequential axial images through the chest obtained following the administration of 70 mL of Omni 350 IV contrast. Sagittal and coronal reformatted images were reconstructed from the axial data and reviewed. 3-D reformatted images were reconstructed from the axial data and reviewed. Comparisons: Chest x-ray same day FINDINGS: Visualized portions of the thyroid are unremarkable. No enlarged mediastinal lymph nodes are identified. Heart size is normal. No pericardial effusion. There is a Rashard type B aortic dissection which extends down the descending aorta into the abdomen, distal extent of which is not visualized. Pulmonary artery is not enlarged. No pulmonary embolus identified within the main, lobar or segmental pulmonary arteries. There is stenosis of the left lower lobe bronchus with associated atelectasis of the left lower lobe. Mild bronchial wall thickening is noted. No consolidation or pneumothorax. There is tree-in-bud nodularity noted in the right middle and lower lobe. No pleural effusion or thickening. Visualized upper abdomen is unremarkable. No suspicious osseous lesions or acute fractures. IMPRESSION: 1. Rashard type B aortic dissection extending from the distal aortic arch down the thoracic aorta into the abdominal aorta at the distal extent of which is not seen. 2. No pulmonary embolus identified within the main, lobar or segmental pulmonary arteries. 3. Tree-in-bud nodularity in the lung bases particularly on the right, may relate to infectious or inflammatory in etiology. Exposure: One or more of the following in the visualized dose reduction techniques were utilized for this examination: 1. Automated exposure control 2. Adjustment of the MA and/or KV according to patient size 3. Use of iterative of reconstructive technique FOR INTERNAL CODING PURPOSES Critical result: Findings discussed with ILAN COSME at 01/01/2020 10:03 PM. RESULT CODE: (C) Electronically signed by: Shital Vences MD (01/01/2020 10:09 PM) [facility] DICTATED and SIGNED BY: SHITAL VENCES MD DATE: 01/01/202208 Course & Med Decision Making: Course & Med Decision Making Pertinent Labs and Imaging studies reviewed. (See chart for details) [] Patient reassessed at 10:08 PM. Patient's pain is mildly improved. Got a call from the radiologist who says he is got a type B aortic dissection. Cardene has been ordered. Patient will be need to be transferred to a tertiary care center. Ariana called back at 10:[address] Raymond has been accepting physician. 231 reassessment systolic blood pressure in the 130s Critical care time was [35] minutes exclusive of procedures. Critical care time was [35] minutes which includes time at bedside, spent in discussion of patient's care with specialist and/or family members, with interpretation of laboratory and/or radiological studies and is exclusive of procedures. Critical condition, type B aortic dissection Critical interventions, transfer to [facility], Saul wilcox, multiple reassessments Lulú Disclaimer: Lulú Disclaimer: This electronic medical record was generated, in whole or in part, using a voice recognition dictation system. Departure Departure Impression: Primary Impression: Aortic dissection Additional Impressions: Chest pain Accelerated hypertension Disposition: 02 [facility]SFER [facility]) Condition: GUARDED Referrals: PEGGY MCCLOUD MD (PCP) ILAN COSME MD Jan 01, 2020 20:15
[2020-01-01] MEDS ORDERED: ASPIRIN CHEWABLE 81 MG TABLET. PO ONE (20:30)
[2020-01-01 20:36] LABS: BASO # 0.1 x10^3/uL (0.0-0.2); BASO % 1 % (0-3); EOS # 0.3 x10^3/uL (0.0-0.7); EOS % 4 % (0-3); HEMATOCRIT 35.4 % (39.0-53.0); HEMOGLOBIN 12.1 g/dL (13.0-17.5); LYMPH # 3.3 x10^3/uL (1.0-4.8); LYMPH % 37 % (24-48); MEAN CORPUSCULAR HEMOGLOBIN 32 pg (25-35); MEAN CORPUSCULAR HGB CONC 34 g/dL (31-37); MEAN CORPUSCULAR VOLUME 92 fL (79-100); MONO # 0.7 x10^3/uL (0.0-1.1); MONO % 8 % (0-9); NEUT # 4.4 x10^3/uL (1.8-7.7); NEUT % 50 % (31-73); PLATELET COUNT 203 x10^3/uL (140-400); RED BLOOD COUNT 3.84 x10^6/uL (4.30-5.70); RED CELL DISTRIBUTION WIDTH 13.1 % (11.5-14.5); WHITE BLOOD COUNT 8.9 x10^3/uL (4.0-11.0)
[2020-01-01 20:45] LABS: PROTHROMBIN TIME PATIENT 14.1 SEC (11.7-14.0)
[2020-01-01 21:04] LABS: D-DIMER 4.65 ug/mlFEU (0.00-0.50)
--- NOTE | 2020-01-01 21:06 | RAD ---
EXAM: PORTABLE CHEST 1V 01/01/2020 8:18 PM CLINICAL INDICATION: Chest pain COMPARISON: Chest radiograph 09/19/2018 TECHNIQUE: AP upright view of the chest FINDINGS: The heart and mediastinum are normal. There is mild left lung volume loss. There is new elevation of the left hemidiaphragm. Left retrocardiac opacities have increased. The right lung is clear. Probable small left pleural effusion. No pneumothorax. No acute osseous abnormality. IMPRESSION: New elevation of the left hemidiaphragm with increased left retrocardiac densities, likely atelectasis although pneumonia is possible. Electronically signed by: Jory Segovia MD (01/01/2020 9:04 PM) [id number]
[2020-01-01 21:09] LABS: CALCIUM 9.2 mg/dL (8.5-10.1); CREATININE 1.3 mg/dL (0.7-1.3); GFR 53.1; POTASSIUM 4.1 mmol/L (3.5-5.1)
[2020-01-01 21:13] LABS: ALBUMIN 4.1 g/dL (3.4-5.0); ALBUMIN/GLOBULIN RATIO 1.2 (1.0-1.7); MAGNESIUM 2.5 mg/dL (1.8-2.4); TOTAL BILIRUBIN 0.3 mg/dL (0.2-1.0); TOTAL PROTEIN 7.6 g/dL (6.4-8.2)
[2020-01-01] MEDS ORDERED: MORPHINE SULFATE 2 MG/ML VIAL. ONE (21:23)
[2020-01-01] MEDS ORDERED: ONDANSETRON PF 4 MG/2 ML VIAL. IVP ONE (21:30)
[2020-01-01] MEDS ORDERED: MORPHINE SULFATE 2 MG/ML VIAL. IV ONE ×2 (21:30→23:00)
[2020-01-01] MEDS ORDERED: CONTRAST GIVEN. MC PRN (21:45)
[2020-01-01] MEDS ORDERED: IOHEXOL 350 MG/ML 100 ML VIAL. IV ONE (21:45)
--- NOTE | 2020-01-01 22:12 | RAD ---
Exam: CT of chest with contrast INDICATION: Chest pain TECHNIQUE: Sequential axial images through the chest obtained following the administration of 70 mL of Omni 350 IV contrast. Sagittal and coronal reformatted images were reconstructed from the axial data and reviewed. 3-D reformatted images were reconstructed from the axial data and reviewed. Comparisons: Chest x-ray same day FINDINGS: Visualized portions of the thyroid are unremarkable. No enlarged mediastinal lymph nodes are identified. Heart size is normal. No pericardial effusion. There is a Creston type B aortic dissection which extends down the descending aorta into the abdomen, distal extent of which is not visualized. Pulmonary artery is not enlarged. No pulmonary embolus identified within the main, lobar or segmental pulmonary arteries. There is stenosis of the left lower lobe bronchus with associated atelectasis of the left lower lobe. Mild bronchial wall thickening is noted. No consolidation or pneumothorax. There is tree-in-bud nodularity noted in the right middle and lower lobe. No pleural effusion or thickening. Visualized upper abdomen is unremarkable. No suspicious osseous lesions or acute fractures. IMPRESSION: 1. Creston type B aortic dissection extending from the distal aortic arch down the thoracic aorta into the abdominal aorta at the distal extent of which is not seen. 2. No pulmonary embolus identified within the main, lobar or segmental pulmonary arteries. 3. Tree-in-bud nodularity in the lung bases particularly on the right, may relate to infectious or inflammatory in etiology. Exposure: One or more of the following in the visualized dose reduction techniques were utilized for this examination: 1. Automated exposure control 2. Adjustment of the MA and/or KV according to patient size 3. Use of iterative of reconstructive technique FOR INTERNAL CODING PURPOSES Critical result: Findings discussed with ILAN COSME at 01/01/2020 10:03 PM. RESULT CODE: (C) Electronically signed by: Shital Moreno MD (01/01/2020 10:09 PM) [facility]
[2020-01-01 23:30] VITALS: BP 100/52
--- NOTE | 2020-01-02 10:43 | EKG ---
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
== END 2020-01-01 23:36 | disposition short-term general hospital (02) ==
LOC: ER 20:02
DX: I71.02 Dissection of abdominal aorta (principal); R07.89 Other chest pain; I10 Essential (primary) hypertension; K21.9 Gastro-esophageal reflux disease without esophagitis; E78.00 Pure hypercholesterolemia, unspecified; J44.9 Chronic obstructive pulmonary disease, unspecified; Z88.2 Allergy status to sulfonamides; Z88.8 Allergy status to other drugs, medicaments and biological substances
CPT/HCPCS: 36415; 71045; 71275; 80053; 83690; 83735; 83880; 84484; 85025; 85379; 85610; 85730; 93005; 96365; 96375; 96376; 99291; J2270; J2405; J3490; J7050; Q9967; J7030

== ENCOUNTER → 2020-01-18 | Outpatient (CLI) | payer OTHER ==
[2020-01-01 23:30] VITALS: BP 100/52
[~2020-01-18] MED LIST changes: +FLUT1BLS3 IH; +METO-239 PO
== END ==
LOC: LAB 10:42
PROVIDERS: ATTEND Internal Medicine Pulmonary Disease
DX: Z01.812 Encounter for preprocedural laboratory examination (principal); R91.1 Solitary pulmonary nodule; Z20.828 Contact with and (suspected) exposure to other viral communicable diseases
CPT/HCPCS: U0003-CS

== ENCOUNTER → 2020-01-21 | Day surgery (SDC) | payer OTHER ==
[~2020-01-21] MED LIST changes: +ALBUTEROL SULFATE 2.5 MG/3 ML NEBU. NEB PRN; +EPINEPHrine 1 MG/ML VIAL INJ PRN; +EPINEPHrine 1 MG/ML VIAL ONE; +IV RINGERS,LACTATED 1000ML 1,000 ML IV SCH; +LIDOCAINE 1% Multi-Dose 20 ML VIAL. INJ PRN; +LIDOCAINE 1% Multi-Dose 20 ML VIAL. ONE; +LIDOCAINE 2% PF 5 ML VIAL. ONE; +LIDOCAINE 2% VISCOUS 100 ML BOTTLE. MM PRN; +LIDOCAINE 2% VISCOUS 100 ML BOTTLE. ONE; +LIDOCAINE 4% TOPICAL 50 ML SOLUTION. MM PRN; +LIDOCAINE 4% TOPICAL 50 ML SOLUTION. ONE; +PROPOFOL 10 MG/ML (20ML) VIAL. IV ONE
[2020-01-21 12:23] VITALS: BP 124/56
== END ==
LOC: SURG 11:58
PROVIDERS: ATTEND Internal Medicine Pulmonary Disease
DX: Z53.8 Procedure and treatment not carried out for other reasons (principal); I10 Essential (primary) hypertension; J43.9 Emphysema, unspecified; K21.9 Gastro-esophageal reflux disease without esophagitis; J44.9 Chronic obstructive pulmonary disease, unspecified; Z88.2 Allergy status to sulfonamides; Z88.8 Allergy status to other drugs, medicaments and biological substances; Z87.891 Personal history of nicotine dependence; Z79.899 Other long term (current) drug therapy
CPT/HCPCS: 94640; J2704; J3490; J7613; J0171

== ENCOUNTER → 2020-01-28 | Day surgery (SDC) | payer OTHER ==
[~2020-01-28] MED LIST changes: +KETAMINE HCL IN NACL, ISO-OSM 50 MG/5 ML SYRINGE ONE; -PROPOFOL 10 MG/ML (20ML) VIAL. IV ONE; +PROPOFOL 50 ML IV ONE
[2020-01-28 14:00] VITALS: BP 123/59
--- NOTE | 2020-01-28 15:50 | OP ---
DATE OF SURGERY: 01/28/2020 PROCEDURES: Bronchoscopy, bronchoalveolar lavage, cytology brushing INDICATIONS: The patient presents with a history of bronchiectasis. Abnormal CT chest revealing occlusion of the left lower lobe bronchus, undergoing a diagnostic bronchoscopy. Risks, benefits, and alternatives reviewed with the patient, he consented. DESCRIPTION OF PROCEDURE: A timeout was performed prior to sedation. Vital signs and O2 saturation were maintained within normal limits throughout the procedure. The bronchoscope was passed through the right naris. The vocal cords were identified moving bilaterally without any dysfunction. The vocal cords were anesthetized with 5 mL of 4% lidocaine. The bronchoscope was passed through the vocal cords into the proximal trachea, which was normal. The distal trachea had some secretions. The right and left segments and subsegments were full of greenish thick secretions. The mucus and secretions were cleared away with saline. I then inspected the left lower lobe. Upon entering the left lower lobe bronchus, the mucosa was slightly abnormal. The anatomy was somewhat distorted. I did not appreciate any endobronchial lesions per se. There was minimal amount of heme from scope trauma. I tried to inspect the airways, but I was unable to fully visualize the subsegments of the left lower lobe secondary to the blood that was present. I washed of blood out. I could not see a true endobronchial lesion. There was some anatomy distortion. A cytology brush was performed of that area along with the bronchoalveolar lavage. The patient tolerated procedure well with no immediate complication. FINDINGS: 1. Normal vocal cords. 2. Normal trachea. 3. Abnormal mucosa to the left lower lobe bronchus. No endobronchial lesion seen per se. There was distorted anatomy. Cytology brushing was performed along with BAL. PLAN: The patient is to follow up in the office on 02/02. At that time, I will go over the BAL and cytology brushing. JADIEL DIANE MD DR: JUSTICE/steve JOB#: [id number] / [id number] PEGGY Luna MD
--- NOTE | 2020-01-29 14:18 | PATHOLOGY ---
Note [facility] Accession Number: [id number] TESTS RESULT FLAG UNITS REF RANGE LAB Clinician Provided Cytology Information No. of containers..01 Other (Miscellaneous) Source: BAL LLL DIAGNOSIS: BAL LLL NEGATIVE FOR MALIGNANT CELLS. BRONCHIAL EPITHELIAL CELLS, PULMONARY MACROPHAGES, AND ACUTE INFLAMMATORY CELLS PRESENT. SILVER METHENAMINE STAINED SMEARS ARE NEGATIVE FOR PNEUMOCYSTIS JIROVECI. FUNGAL ORGANISMS ARE PRESENT. Signed out by: 02 Antonino Romo MD, Pathologist NPI- [id number] Performed by: Concepción Acevedo, Wearing Apparel Shaker ([facility]) Gross description: 01 5ML, RUIZ, 1 TP 1 NICHOLAS /LCS 01/28/2020 1814 Local FLAG LEGEND: L-Low Normal,H-High Normal,LL-Alert Low,HH-Alert High <-Panic Low,>-Panic High,A-Abnormal,AA-Critical Abnormal Performed at: [facility] [address] [place] [address] Sabas Pantoja MD, 02 [address] [facility] [place] [address] [place] [address] Antonino Romo MD, Specimen Comment: A courtesy copy of this report has been sent to [phone], [phone] Specimen Comment: [phone] Specimen Comment: Report sent to / DR MCCLOUD Specimen Comment: A duplicate report has been generated due to demographic updates. Performed at: [address], [place], [place] [id number] MD Sabas Pantoja MD Phone: [phone]
--- NOTE | 2020-01-29 14:18 | PATHOLOGY ---
Note [facility] Accession Number: [id number] TESTS RESULT FLAG UNITS REF RANGE LAB Clinician Provided Cytology Information No. of containers..01 Slide Source: BRONCH BRUSH LLL DIAGNOSIS: 02 BRONCH BRUSH LLL NEGATIVE FOR MALIGNANT CELLS. FEW BRONCHIAL EPITHELIAL CELLS AND RARE PULMONARY MACROPHAGES PRESENT WITHIN A BACKGROUND OF NEUTROPHILS. Signed out by: 02 Antonino Romo MD, Pathologist NPI- [id number] Performed by: Concepción Acevedo, Chain Pegger ([facility]) Gross description: 01 1 FIXED /LCS 01/28/2020 1816 Local FLAG LEGEND: L-Low Normal,H-High Normal,LL-Alert Low,HH-Alert High <-Panic Low,>-Panic High,A-Abnormal,AA-Critical Abnormal Performed at: [address] [place] [address] Sabas Pantoja MD, 02 [facility] [address] [place] [address] Antonino Romo MD, Specimen Comment: A courtesy copy of this report has been sent to [phone], [phone] Specimen Comment: [phone] Specimen Comment: Report sent to / DR MCCLOUD Specimen Comment: A duplicate report has been generated due to demographic updates. Performed at: [address] [place] [address] [address], [place], [place] [id number] MD Sabas Pantoja MD Phone: [phone]
--- NOTE | 2020-01-29 14:18 | PATHOLOGY ---
Note [facility] Accession Number: [id number] TESTS RESULT FLAG UNITS REF RANGE LAB Clinician Provided Cytology Information No. of containers..01 Other (Miscellaneous) Source: BRUSH TIP LLL DIAGNOSIS: 02 BRUSH TIP LLL NEGATIVE FOR MALIGNANT CELLS. FOCALLY REACTIVE BRONCHIAL EPITHELIAL CELLS AND ACUTE INFLAMMATORY CELLS PRESENT. Signed out by: 02 Antonino Romo MD, Pathologist NPI- [id number] Performed by: Concepción Acevedo, Certified Drug Counselor ([facility]) Gross description: 1 TP /LCS 01/28/2020 1819 Local FLAG LEGEND: L-Low Normal,H-High Normal,LL-Alert Low,HH-Alert High <-Panic Low,>-Panic High,A-Abnormal,AA-Critical Abnormal Performed at: [facility] [address] [place] [address] Sabas Pantoja MD, 02 [facility] [facility] [address] [place] [address] Antonino Romo MD, Performed at: [address], [place], [place] [id number] MD Sabas Pantoja MD Phone: [phone]
== END | disposition home or self-care (01) ==
LOC: SURG 11:59
PROVIDERS: ATTEND Internal Medicine Pulmonary Disease
DX: R91.8 Other nonspecific abnormal finding of lung field (principal); J47.9 Bronchiectasis, uncomplicated; I10 Essential (primary) hypertension; E78.00 Pure hypercholesterolemia, unspecified; J44.9 Chronic obstructive pulmonary disease, unspecified; K21.9 Gastro-esophageal reflux disease without esophagitis; M19.90 Unspecified osteoarthritis, unspecified site; Z79.899 Other long term (current) drug therapy; Z98.890 Other specified postprocedural states; Z87.891 Personal history of nicotine dependence; Z88.8 Allergy status to other drugs, medicaments and biological substances; Z88.2 Allergy status to sulfonamides
CPT/HCPCS: 31624; 36415; 87070; 87102; 87116; 87205; 87252; 87801; 88104; 88112; 94640; J2704; J3490; J7613; 31622; J0171

== ENCOUNTER → 2020-04-15 | Outpatient (CLI) | payer MEDICARE, OTHER ==
[2020-01-28 14:00] VITALS: BP 123/59
[~2020-04-15] MED LIST changes: -ALBUTEROL SULFATE 2.5 MG/3 ML NEBU. NEB PRN; -EPINEPHrine 1 MG/ML VIAL INJ PRN; -EPINEPHrine 1 MG/ML VIAL ONE; -IV RINGERS,LACTATED 1000ML 1,000 ML IV SCH; -KETAMINE HCL IN NACL, ISO-OSM 50 MG/5 ML SYRINGE ONE; -LIDOCAINE 1% Multi-Dose 20 ML VIAL. INJ PRN; -LIDOCAINE 1% Multi-Dose 20 ML VIAL. ONE; -LIDOCAINE 2% PF 5 ML VIAL. ONE; -LIDOCAINE 2% VISCOUS 100 ML BOTTLE. MM PRN; -LIDOCAINE 2% VISCOUS 100 ML BOTTLE. ONE; -LIDOCAINE 4% TOPICAL 50 ML SOLUTION. MM PRN; -LIDOCAINE 4% TOPICAL 50 ML SOLUTION. ONE; -PROPOFOL 50 ML IV ONE; +REGADENOSON 0.4 MG/5 ML DISP.SYRIN. IV ONE
--- NOTE | 2020-04-16 09:45 | RAD ---
MR#: [id number] Date of Study: 04/15/2020 Ordering Physician: ALYSHA HOLDER, Referring Physician: JUAN RAMON BRYANT Tech: Maribel Nagy RT (R) (N) APPROVED REPORT Test Type: Pharmacological Stress Nurse/Tech: Roger Thao RN Test Indications: Chest Pain Cardiac History: HTN, Aortic Dissection, See EMR. Medications: See EMR. Medical History: COPD, See EMR. Resting ECG: SB Resting Heart Rate: 51 bpm Resting Blood Pressure: 134/65mmHg Pretest Chest Pain: None Nurse/Tech Notes Lungs CTA, Heart tones regular. Consent: The procedure was explained to the patient in lay terms. Informed consent was witnessed. Bhavik eout was entered into [employer]. History and Stress Test performed by SILVIA Muñoz, ZINA (R) (N) Pharm. Details Pharmacologic stress testing was performed using 0.4mg per 5ml of regadenoson given intravenously ove r 7-10 seconds. Stress Symptoms No chest pain or symptoms. POST EXERCISE Reason for Termination: Infusion complete Max HR: 80 bpm Max Blood Pressure: 134/65mmHg Blood Pressure response to exercise: Normal blood pressure response during stress. Heart Rate response to exercise: WNL Chest Pain: No. Arrhythmia: No. ST Change: No. INTERPRETATION Stress EKG Conclusion: Baseline EKG showed sinus rhythm. No ischemic changes at peak stress. No arr hythmias. Imaging Protocol IMAGE PROTOCOL: Rest Tc-99m/stress Tc-99m 1 day Rest: Stress: Viability: Radiopharm.Tc99m JugfzqqggOm21p Sestamibi Vdma94oAa 32mCi Duration 15min. 10min. Img Date 04/15/2020 04/15/2020 Inj-Img [id number]. 60min. Rest Admin Site:IV - Right AntecubitalAdministrator:SILVIA Muñoz ARRT (R)(N) Stress Admin Site: IV - Right AntecubitalAdministrator: SILVIA Muñoz ARRT (R)(N) STRESS DATA End Diast. Vol.130.0mlAv. Heart Rate67.0bpm End Syst. Vol.29.0mlCO Index BSA0.0L/min Myocardial Keey770.0gEject. Zfmmfvdn26.0% Stress Rates Pk. Fill Rate2.60EDV/secLVtime Pk. Fill 130.98msec Pk. Empty Rate3.16ESV/secLVtime Pk. Rypjp852.19msec 1/3 Pk. Fill1.78EDV/sec Stress Scores Regional WT0.00Summed WT0.00 Regional WM0.00Summed WM0.00 Study quality was good. Left Ventricular size was Normal at Rest and Stress. Lung uptake was . Left Ventricular ejection fraction is 74%. The rest and stress images show normal perfusion, normal contraction and thickening. LV Perf. Quant 17 Seg. SSS1.00 17 Seg. SRS0.00 17 Seg. SDS1.00 Stress Defect Extent (% LAD)0.00Rest Defect Extent (% LAD)0.00Rev. Defect Extent (% LAD)0.00 Stress Defect Extent (% LCX) 0.00Rest Defect Extent (% LCX)0.00Rev. Defect Extent (% LCX)0.00 Stress Defect Extent (% RCA)0.00Rest Defect Extent (% RCA)0.00Rev. Defect Extent (% RCA)0.00 Stress Defect Extent (% CORRINE)0.00Rest Defect Extent (% CORRINE)0.00Rev. Defect Extent (% CORRINE)0.00 Conclusion 1. Regadenoson cardioisotope stress test did not show any evidence of ischemia or infarct. 2. Normal left ventricular systolic function with ejection fraction calculated at 74%. 3. Low risk for cardiac events. Signed by : Alysha Holder, Electronically Approved : 04/16/2020 09:44:51
== END ==
LOC: NM 08:40
PROVIDERS: ATTEND Internal Medicine Cardiovascular Disease
DX: I10 Essential (primary) hypertension (principal); R07.9 Chest pain, unspecified
CPT/HCPCS: 78452; 93017; A9500; J2785

== ENCOUNTER → 2020-10-31 | Outpatient (CLI) | payer MEDICARE ==
[2020-01-28 14:00] VITALS: BP 123/59
[~2020-10-31] MED LIST changes: -REGADENOSON 0.4 MG/5 ML DISP.SYRIN. IV ONE
--- NOTE | 2020-10-31 14:38 | KCIC ---
MRI of the lumbar spine without contrast 10/31/2020 CLINICAL HISTORY: Chronic low back pain which radiates down the right leg. TECHNIQUE: Unenhanced T1-weighted and T2-weighted sagittal and axial and inversion recovery sagittal images of the lumbar spine were obtained. FINDINGS: Comparison is made to a CT scan of the lumbar spine dated 08/31/2018. The patient has transitional vertebral anatomy. For the purposes of this dictation, the transitional vertebrae will be referred to by the letter T. A hypoplastic disc is seen at T-S1. Minimal S-shaped curvature of the thoracolumbar spine is seen. Mild to moderate anterolisthesis of L5 in relation to T is seen. Degenerative signal changes are seen involving all the disks of the lumbar spine. Degenerative signal changes are seen within the marrow surrounding these discs. Loss of heigh t of the L5-T disc is seen. The conus medullaris is normal morphology, position, and signal character istics. At the L1-2, L2-3 and L3-4 disc spaces there are minimal to mild generalized disc bulges. Degenerativ e changes are seen involving the facet joints bilaterally. There is mild ligamentum flavum hypertroph y bilaterally. These findings when combined do not result in significant central spinal canal or neur al foraminal stenosis. At the L4-5 disc space there is a mild generalized disc bulge. Degenerative changes are seen involvin g the facet joints bilaterally. There is moderate ligamentum flavum hypertrophy bilaterally. These fi ndings when combined do not result in significant central spinal canal or neural foraminal stenosis. At the L5 -T disc space there is a moderate generalized disc bulge. Degenerative changes are seen inv olving the facet joints, left greater than right. There is mild to moderate ligamentum flavum hypertr ophy bilaterally. These findings when combined with the anterolisthesis do not result in significant central spinal canal stenosis. Mild left greater than right neural foraminal stenosis is seen. The T-S1 disc space is within normal limits. IMPRESSION: The changes of degenerative disc disease are seen throughout the lumbar spine. These find ings do not result in significant central spinal canal stenosis at any level. Mild left greater than right neural foraminal stenosis is seen at L5-T. Electronically signed by: Erasto Flowers MD (10/31/2020 2:35 PM) [id number]
== END ==
LOC: KCIC MRI 10:02
PROVIDERS: ATTEND Family Medicine
DX: M51.36 Other intervertebral disc degeneration, lumbar region (principal); M48.061 Spinal stenosis, lumbar region without neurogenic claudication; M51.26 Other intervertebral disc displacement, lumbar region; M43.16 Spondylolisthesis, lumbar region; M47.816 Spondylosis without myelopathy or radiculopathy, lumbar region
CPT/HCPCS: 72148

== ENCOUNTER → 2020-11-14 | Outpatient (CLI) | payer MEDICARE ==
[2020-01-28 14:00] VITALS: BP 123/59
[~2020-11-14] MED LIST changes: +ALBU2.5V8 IH; +AZIT250T6 PO; +DICL75TA PO; +FAMO20TA5 PO
--- NOTE | 2020-11-14 11:09 | PDOC ---
Progress Note - Pain Clinic Date of Service: DOS: DATE: 11/14/20 TIME: 11:04 Diagnosis: Dx: Lumbar and lumbosacral spondylosis Lumbar degenerative disc disease Myofascial pain Compression fracture T7 Thoracic degenerative disc disease History or Present Illness: HPI: 79-year-old male returns for follow-up last seen 2018January 29 underwent lumbar epidural steroid injections x3 with good results but only lasting for about a month patient reports 70 to 80% improvement for a month and the pain returns and is now different as it is in his low back but not radiating to the lower extremity patient ports in the left side greater than right but present bi laterally and is radiating across the back worse with standing walking bending especially with extension such as using a weed eater vacuuming bending and extending with the lumbar spine patient reports is not rating to the lower extremities as it has previously but is much more severe in the back itself patient reports is waking her from sleep rarely better with laying down but sit ting for more than 10 to 15 minutes exacerbates the pain as a standing especially standing still and also bothers him with walking patient reports his pain is a 10 on scale 10 is worst average and a 6 at its least is a 10 today patient wanted sharp and shooting across the back burning and stabbing in the back itself constant can be severe and unbearable. Patient has tried meloxicam and also taking diclofenac currently without any significant decrease in pain he is taking naproxen without significant benefit as well and is taking tramadol with only minimal decrease in pain currently. Patient is doing stretching strength exercises on his own also using icy hot topically without significant reduction in pain. Physical Exam: VS: Blood pressure is 136/69 pulse 59 respirations 16 temperature is 97.9 F weight is 172 pounds PE: PHYSICAL EXAMINATION: GENERAL: The patient is awake, alert, oriented, appropriate, very pleasant in demeanor HEENT: Shows normocephalic, atraumatic. Extraocular movements are intact and symmetrical. Oral cavity: Mucous membranes moist and pink. NECK: Shows anterior throat supple without palpable lymphadenopathy noted. Swallow reflex symmetrical. CHEST: Shows normal on inspection. Breath sounds are clear bilaterally, distant no rales rhonchi or wheezes auscultated. HEART: Shows S1, S2 clear. No murmurs auscultated. ABDOMEN: Soft, nontender, nondistended, obese. No palpable organomegaly is noted. No rebound or guarding demonstrated. BACK: Shows spine grossly in the midline. Normal-appearing cervical lordotic curvature. There is slightly increased thoracic kyphosis, some minor flattening of the lumbar lordotic curvature. Lumbar paraspinous muscles show symmetrical on inspection, on palpation shows some moderate tenderness diffusely throughout the upper, middle and lower distribution of the paraspinous muscles bilaterally and also into the lower thoracic paraspinous musculature, firm and tender, but without specific trigger points, without radiation of pain. The patient has good rotational motion of the lumbar spine, both laterally as well as extension and flexion with significant pain with extension of the lumbar spine more on the right than the left and present bilaterally also some mild pain with forward flexion 45 degrees right and left lateral rotation significant pain with right lateral rotation to 10 degrees and left rotation 10 degrees moderate pain as well on the left side. No tenderness over the spinous processes, sacrum or sacroiliac regions. EXTREMITIES: Lower extremities show deep tendon reflexes 1+ in the patellar and tendo calcaneus tendons. Motor exam is 5 on a scale of 5 with right dorsiflexion, extension, quadriceps and hamstring flexion and 5/5 on the left. Peripheral pulses are 1+ posterior tibial. No peripheral edema is noted bilaterally. Lower extremities are warm and dry to touch, equal in color and appearance. SKIN: Shows warm and dry, good turgor. No edema. No sores, rashes or bruising throughout. Procedure: Procedure: Options discussed with the patient. Patient chart reviews his current medic ation regimen updated current review of systems updated today as well. We will check with patient's clock and watch hands painter to hold his Eliquis for 3 days prior to bilateral L4-5 and L5-S1 facet medial branch blocks. Patient will be given Medrol Dosepak in the meantime which was called into his pharmacy with instructions and side effects beware of discussed. Patient return once clearance is given to hold his Eliquis if deemed safe and appropriate. Medication Injected: Med Injected: None Condition at Discharge: Condition at Discharge: Condition at discharge is stable. MARY ANN STANTON MD Nov 14, 2020 11:09
== END | disposition home or self-care (01) ==
LOC: PNCL 10:08
PROVIDERS: ATTEND Anesthesiology
DX: M51.36 Other intervertebral disc degeneration, lumbar region (principal); M47.817 Spondylosis without myelopathy or radiculopathy, lumbosacral region; M79.18 Myalgia, other site; M51.34 Other intervertebral disc degeneration, thoracic region; I10 Essential (primary) hypertension; E78.00 Pure hypercholesterolemia, unspecified; K21.9 Gastro-esophageal reflux disease without esophagitis; M19.90 Unspecified osteoarthritis, unspecified site; Z87.891 Personal history of nicotine dependence; Z79.899 Other long term (current) drug therapy; Z98.890 Other specified postprocedural states; Z88.8 Allergy status to other drugs, medicaments and biological substances
CPT/HCPCS: 99212; G0463

== ENCOUNTER → 2020-11-23 | Outpatient (CLI) | payer MEDICARE ==
[2020-01-28 14:00] VITALS: BP 123/59
[~2020-11-23] MED LIST changes: +BUPIVACAINE MPF 0.25% 10 ML VIAL. ONE; +HYDR-2765 PO; +IOHEXOL 180 MG/ML 10 ML VIAL. ONE; +methylPREDNISolone ACETATE 80 MG/ML VIAL. ONE
--- NOTE | 2020-11-23 13:58 | PDOC ---
Progress Note - Pain Clinic Date of Service: DOS: DATE: 11/23/20 TIME: 13:53 Diagnosis: Dx: Compression fracture T7 with degenerative disc disease thoracic spine Myofascial pain Lumbar radiculopathy with lumbar degenerative disease and lumbar and lumbosacral spondylosis History or Present Illness: HPI: 79-year-old male returns for follow-up status post lumbar epidural steroid injections last in December 2018. Patient returned on November 14, 2020 with pain in the back now not radiating to the lower extremities at this time just in the low back itself bilaterally with pain more on the right than the left but present bilaterally worse with walking standing changing positions, better with resting and laying down, generally awaken him from sleep maybe once at night. Patient reports the pain is worse with walking standing specially getting up from a seated position. Patient reports no radiation of the lower extremities at this time rates his pain is a 10 on scale 10 is worse over the past week 10 on average 6 its least and is a 6 today patient will do shooting stabbing can be constant and unbearable at times with walking or standing for more than even 5 t o 10 minutes. Patient reports no bowel or bladder incontinence no motor or sensory deficits but significant fatigability of back muscles with activity. Physical Exam: VS: Blood pressure is 96/47 pulse 72 respirations 18 temperature 98.2 F height 5 foot 11 inches weight 171 pounds PE: PHYSICAL EXAMINATION: GENERAL: The patient is awake, alert, oriented, appropriate, very pleasant in demeanor HEENT: Shows normocephalic, atraumatic. Extraocular movements are intact and symmetrical. Oral cavity: Mucous membranes moist and pink. NECK: Shows anterior throat supple without palpable lymphadenopathy noted. Swallow reflex symmetrical. CHEST: Shows normal on inspection. Breath sounds are clear bilaterally, distant but no rales or rhonchi. HEART: Shows S1, S2 clear. No murmurs auscultated. ABDOMEN: Soft, nontender, nondistended, obese. No palpable organomegaly is noted. BACK: Shows spine grossly in the midline. Normal-appearing cervical lordotic curvature. There is slightly increased thoracic kyphosis, some minor flattening of the lumbar lordotic curvature. Lumbar paraspinous muscles show symmetrical on inspection, on palpation shows some moderate tenderness diffusely throughout the upper, middle and lower distribution of the paraspinous muscles without specific trigger points, without radiation of pain. The patient has good ro tational motion of the lumbar spine, both laterally as well as extension and flexion with significant tenderness with extension of the lumbar spine and axial loading better with forward flexion 45 degrees right and left lateral rotation at 10 degrees causes moderate pain more on the right than the left but without radiation as well. EXTREMITIES: Lower extremities show deep tendon reflexes 1+ in the patellar and tendo calcaneus tendons. Motor exam is 5 on a scale of 5 with right dorsiflexion, extension, quadriceps and hamstring flexion and 5/5 on the left. Peripheral pulses are 1+ posterior tibial. No peripheral edema is noted teo aterally. Lower extremities are warm and dry to touch, equal in color and appearance. SKIN: Shows warm and dry, good turgor. No edema. No sores, rashes or bruising throughout. Procedure: Procedure: Options were discussed with the patient. Patient chart reviews his current medication regimen updated current review of systems updated today as well. We will proceed with bilateral L4-5 and L5-S1 medial branch facet blocks today with fluoroscopic guidance. Risks were discussed including but not limited to: Bleeding, infection, possibility of epidural hematoma and subsequent neurological compromise, dural puncture, headaches, spinal cord and/or nerve damage, side effects of steroid medication, and poor results regarding pain control. Patient understands and wished to proceed. Patient will return to clinic in approximately 3 weeks for follow-up, was counseled as return appointment [facility] and side effects beware of. Patient will restart his Eliquis tomorrow as instructed, by his engineering specialist. Medication Injected: Med Injected: Under sterile prep and drape using C-arm fluoroscopic guidance AP and lateral and oblique views, bilateral L4-5 and L5-S1 facet joint MB's injections were performed, using quinke needles with stylette's x4,, medications injected: 120 mg Depo-Medrol +4 cc 0.25% bupivacaine +2 cc contrast. Condition at discharge stable patient tolerated the procedure well and no complications. Condition at Discharge: Condition at Discharge: Condition at discharge is stable, patient already procedure well and had no complications. We will call in prescription for hydrocodone 7.5 mg per patient's request patient was given instructions well side effects aware with the medication. MARY ANN STANTON MD Nov 23, 2020 13:58
--- NOTE | 2020-11-23 13:58 | PDOC4 ---
Procedure Note: ICD 10 Code: ICD 10 Code: M4 7.816 M4 7. 8 17 Procedure Note: Patient was consented for bilateral lumbar facet medial branch blocks L4-5 and L5-S1 with fluoroscopic guidance. Risks were discussed including but not limited to: Bleeding, infection, possibility of epidural hematoma and subsequent neurological compromise, dural puncture, headaches, spinal cord and/or nerve damage, side effects of steroid medication, and poor results regarding pain control. Patient understands and wished to proceed. Under sterile prep and drape using C-arm fluoroscopic guidance AP and lateral and oblique views, bilateral L4-5 and L5-S1 facet joint MB's injections were performed, using quinke needles with stylette's x4,, medications injected: 120 mg Depo-Medrol +4 cc 0.25% bupivacaine +2 cc contrast. Condition at discharge stable patient tolerated the procedure well and no complications. MARY ANN STANTON MD Nov 23, 2020 13:58
== END | disposition home or self-care (01) ==
LOC: PNCL 13:07
PROVIDERS: ATTEND Anesthesiology
DX: M51.16 Intervertebral disc disorders with radiculopathy, lumbar region (principal); M47.26 Other spondylosis with radiculopathy, lumbar region; M47.817 Spondylosis without myelopathy or radiculopathy, lumbosacral region; M79.18 Myalgia, other site; M51.34 Other intervertebral disc degeneration, thoracic region; M48.54XA Collapsed vertebra, not elsewhere classified, thoracic region, initial encounter for fracture; I10 Essential (primary) hypertension; E78.00 Pure hypercholesterolemia, unspecified; J44.9 Chronic obstructive pulmonary disease, unspecified; K21.9 Gastro-esophageal reflux disease without esophagitis; M19.90 Unspecified osteoarthritis, unspecified site; Z87.891 Personal history of nicotine dependence; Z79.899 Other long term (current) drug therapy; Z98.890 Other specified postprocedural states; Z88.2 Allergy status to sulfonamides; Z88.8 Allergy status to other drugs, medicaments and biological substances
CPT/HCPCS: 64493; 64494; J1040; J3490; Q9965

== ENCOUNTER → 2020-12-14 | Outpatient (CLI) | payer MEDICARE ==
[2020-01-28 14:00] VITALS: BP 123/59
[~2020-12-14] MED LIST changes: -BUPIVACAINE MPF 0.25% 10 ML VIAL. ONE; +OXYC1TAB19 PO
--- NOTE | 2020-12-14 14:23 | PDOC ---
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 Patient reports only minimal decrease in pain for the first day or 2 and then the pain returned in the low back and now is radiating into bilateral lower extremities much more significantly on the right than the left and present bilaterally posterior gluteus posterior thigh posterior calf patient reports is worse on the right with activity walking standing changing positions better with sitting or laying down. Patient reports pain is a 10 on scale 10 is worse over the past week 9 on average 6 its least is a 7 today patient reported sharp and shooting stabbing constant when walking better with sitting or laying down generally doesn't awaken her from sleep at night but has a when he changes positions. Patient usually repositioning to sleep patient reports has been using icy hot topically which helps decrease the pain but only moderately. Patient reports he is unable to complete his mowing yard work and housework secondary to the pain. Patient reports no bowel or bladder incontinence no motor deficits but significant fatigability especially of the right lower extremity. Physical Exam: VS: Blood pressure is 136/77 pulse 60 respirations 18 temperature is 97.8 F weight is 178 pounds PE: PHYSICAL EXAMINATION: GENERAL: The patient is awake, alert, oriented, appropriate, very pleasant demeanor HEENT: Shows normocephalic, atraumatic. Extraocular movements are intact and symmetrical. Patient wearing eyeglasses. Oral cavity: Mucous membranes moist and pink. NECK: Shows anterior throat supple without palpable lymphadenopathy noted. Swallow reflex symmetrical. CHEST: Shows normal on inspection. Breath sounds are clear bilaterally. HEART: Shows S1, S2 clear. No murmurs auscultated. ABDOMEN: Soft, nontender, nondistended. No palpable organomegaly is noted. No rebound or guarding demonstrated. BACK: Shows spine grossly in the midline. Normal-appearing cervical lordotic curvature. There is slightly increased thoracic kyphosis, some minor flattening of the lumbar lordotic curvature. Lumbar paraspinous muscles show symmetrical on inspection, on palpation shows some moderate tenderness diffusely throughout the upper, middle and lower distribution of the paraspinous muscles, but without specific trigger points, without radiation of pain. The patient has good rotational motion of the lumbar spine, both laterally as well as extension and flexion. EXTREMITIES: Lower extremities show deep tendon reflexes 1 in the patellar and tendo calcaneus tendons. Motor exam is 5 on a scale of 5 with right dorsiflexion, extension, quadriceps and hamstring flexion and 5/5 on the left. Peripheral pulses are 1+ posterior tibial. No peripheral edema is noted bilaterally. Lower extremities are warm and dry to touch, equal in color and appearance. SKIN: Shows warm and dry, good turgor. No edema. No sores, rashes or bruising throughout. Procedure: Procedure: Options discussed with the patient. Patient's old chart was reviewed his current medication regimen updated current review of systems updated today as well. We'll proceed with a lumbar epidural steroid injection today with fluoroscopic guidance. Risks were discussed including but not limited to: Bleeding, infection, possibility of epidural hematoma and subsequent neurological compromise, dural puncture, headaches, spinal cord and/or nerve damage, side effects of steroid medication, and poor results regarding pain control. Patient understands and wished to proceed. Patient will return to clinic in approximately 2 weeks for follow-up, was counseled as return appointment, activity level, and side effects to be aware of. Medication Injected: Med Injected: Procedure is lumbar epidural steroid injection under local anesthetic using shu rile prep and drape at the L5-S1 level using C-arm fluoroscopic guidance in both AP and lateral views medications injected is 120 mg Depo-Medrol +10mL preservative-free normal saline and 2 mL contrast- condition at discharge is stable patient tolerated procedure well had no complications. Condition at Discharge: Condition at Discharge: Condition at discharge is stable, patient already procedure well and had no complications. MARY ANN STANTON MD Dec 14, 2020 14:23
--- NOTE | 2020-12-14 14:24 | PDOC4 ---
Procedure Note: ICD 10 Code: ICD 10 Code: M5 4.17 M51.87 M4 7.816 M4 7.817 Procedure Note: Patient was consented for lumbar epidural steroid injection with fluoroscopic guidance. Risks were discussed including but not limited to: Bleeding, infection, possibility of epidural hematoma and subsequent neurological compro mise, dural puncture, headaches, spinal cord and/or nerve damage, side effects of steroid medication, and poor results regarding pain control. Patient understands and wished to proceed. Procedure is lumbar epidural steroid injection under local anesthetic using sterile prep and drape at the L5-S1 level using C-arm fluoroscopic guidance in both AP and lateral views medications injected is 120 mg Depo-Medrol +10mL preservative-free normal saline and 2 mL contrast- condition at discharge is stable patient tolerated procedure well had no complications. MARY ANN STANTON MD Dec 14, 2020 14:24
== END | disposition home or self-care (01) ==
LOC: PNCL 13:40
PROVIDERS: ATTEND Anesthesiology
DX: M51.16 Intervertebral disc disorders with radiculopathy, lumbar region (principal); M51.34 Other intervertebral disc degeneration, thoracic region; M79.18 Myalgia, other site; M47.27 Other spondylosis with radiculopathy, lumbosacral region; I10 Essential (primary) hypertension; E78.00 Pure hypercholesterolemia, unspecified; J44.9 Chronic obstructive pulmonary disease, unspecified; K21.9 Gastro-esophageal reflux disease without esophagitis; M19.90 Unspecified osteoarthritis, unspecified site; Z87.891 Personal history of nicotine dependence; Z79.899 Other long term (current) drug therapy; Z98.890 Other specified postprocedural states; Z88.2 Allergy status to sulfonamides; Z88.8 Allergy status to other drugs, medicaments and biological substances
CPT/HCPCS: 62323; J1040; Q9965; 62322

== ENCOUNTER → 2020-12-27 | Outpatient (CLI) | payer MEDICARE ==
[2020-01-28 14:00] VITALS: BP 123/59
[~2020-12-27] MED LIST changes: -IOHEXOL 180 MG/ML 10 ML VIAL. ONE; -methylPREDNISolone ACETATE 80 MG/ML VIAL. ONE
--- NOTE | 2020-12-27 14:34 | NUR ---
Patient called requesting a refill of Percocet . States his pain level is a constant 8. Verified patients name and date of . Patient denies any new medications, new allergies , Pharmacy or new medical problems. Patient denies any constipation. [facility] ran for Dr Bansal patient transferred to Dr bansal.
--- NOTE | 2020-12-27 15:51 | PDOC ---
Progress Note - Pain Clinic Date of Service: DOS: DATE: 12/27/20 TIME: 15:48 Diagnosis: Dx: Lumbar radiculopathy with lumbar degenerative disc disease and lumbar and lumbosacral spondylosis Myofascial pain Compression fracture T7 with degenerative disc disease thoracic spine History or Present Illness: HPI: Telemedicine visit today with identity verified with date of and full name, total time spent: 12 minutes Telemedicine visit today for patient follow-up after lumbar epidural steroid injection December 15, 2019 patient reports he did better than prior with the injections in the facet medial branches but still having significant pain in the low back and right lower extremity. Patient did well with oxycodone which we prescribed for him after last visit his hydrocodone he was taking was not helping very significantly. Patient is requesting a refill of this as he was only given 30 tablets on the of this month. Patient reports no side effects with the medication we discussed side effects to be aware of especially constipation sedation itching nausea etc. Patient is scheduled follow-up January 04 we will discuss any further interventions or treatment at that time. In the meantime we will electronically prescribe oxycodone 7.5 mg total number of 30 tablets with instructions and side effects aware of discussed with the patient. Physical Exam: PE: MARY ANN STANTON MD Dec 27, 2020 15:51
== END | disposition home or self-care (01) ==
LOC: PNCL 14:25
PROVIDERS: ATTEND Anesthesiology
DX: M51.16 Intervertebral disc disorders with radiculopathy, lumbar region (principal); M47.27 Other spondylosis with radiculopathy, lumbosacral region; M79.18 Myalgia, other site; M51.34 Other intervertebral disc degeneration, thoracic region; M48.54XA Collapsed vertebra, not elsewhere classified, thoracic region, initial encounter for fracture; I10 Essential (primary) hypertension; E78.00 Pure hypercholesterolemia, unspecified; J44.9 Chronic obstructive pulmonary disease, unspecified; K21.9 Gastro-esophageal reflux disease without esophagitis; M19.90 Unspecified osteoarthritis, unspecified site; Z87.891 Personal history of nicotine dependence; Z79.899 Other long term (current) drug therapy; Z88.8 Allergy status to other drugs, medicaments and biological substances; Z98.890 Other specified postprocedural states
CPT/HCPCS: 99212; G0463

== ENCOUNTER → 2020-12-29 | Outpatient (CLI) | payer MEDICARE ==
[2020-01-28 14:00] VITALS: BP 123/59
--- NOTE | 2020-12-29 18:20 | KCIC ---
INDICATION: Reason: Nodular infiltrate / Spl. Instructions: / History: . COMPARISON: January 01, 2020 TECHNIQUE: Axial CT images obtained through the chest without contrast. One or more of the following individualized dose reduction techniques were utilized for this examinat ion: 1. Automated exposure control; 2. Adjustment of the mA and/or kV according to patient size; 3 . Use of iterative reconstruction technique. FINDINGS: Volume loss within the left hemithorax. There is filling of the left lower lobe bronchus which is opa cified with intraluminal material with increased opacification of the left lower lobe which now appea rs largely collapsed in the left lower lung. There is high density material within the region which c ould be from calcifications unless the patient has had a procedure to the region to explain this find ing. There is peribronchial thickening identified with some hyperaeration of the left upper lobe whic h may be compensatory. There is persistent nodular opacities within the right lower lung which appear both solid and groundg lass. Hyperinflation of the right lung is seen as well. There is some mediastinal deviation to the le ft again seen. Atherosclerotic disease is again seen at the thoracic aorta. The patient has a known aortic dissectio n which is not as well evaluated on this noncontrast examination but the true and false lumen are bereket ntly visualized. Coronary artery calcific atherosclerosis. Degenerative changes of the spine. Scattered small lymph nodes in the mediastinum. Moderate compressi on deformity of T7 vertebral body again seen. Degenerative changes the spine. IMPRESSION: * There has been interval increase in collapse of the left lower lobe which now appears completely o pacified with the bronchus filled with intraluminal content. Differential considerations would includ e an endobronchial neoplasm with associated lobar collapse with other possible causes including chron ic mucous plugging. There is some fat density material as well as calcifications within the region th ereforeaspiration, lipoid pneumonia and broncholith not excluded in addition. * Repeat demonstration of multiple nodules including the cluster of nodular opacities at the right l maciej base. Could be chronic infectious or inflammatory in nature but continued follow-up could be obta ined to ensure that there is no growth to exclude any neoplastic nodules. Electronically signed by: Oscar Knox MD (12/29/2020 6:18 PM) [id number]
== END ==
LOC: KCIC CT 12:15
PROVIDERS: ATTEND Internal Medicine Pulmonary Disease
DX: R91.8 Other nonspecific abnormal finding of lung field (principal); J98.19 Other pulmonary collapse; J98.11 Atelectasis; I70.0 Atherosclerosis of aorta; I25.10 Atherosclerotic heart disease of native coronary artery without angina pectoris; M48.54XD Collapsed vertebra, not elsewhere classified, thoracic region, subsequent encounter for fracture with routine healing; M47.819 Spondylosis without myelopathy or radiculopathy, site unspecified
CPT/HCPCS: 71250

== ENCOUNTER → 2021-01-18 | Outpatient (CLI) | payer MEDICARE ==
[2020-01-28 14:00] VITALS: BP 123/59
[~2021-01-18] MED LIST changes: +HYDR-2769 PO
--- NOTE | 2021-01-18 14:03 | PDOC ---
Progress Note - Pain Clinic Date of Service: DOS: DATE: 01/18/21 TIME: 14:00 Diagnosis: Dx: Thoracic degenerative disc disease with thoracic compression fracture T7 Lumbar radiculopathy with lumbar degenerative disc disease Myofascial pain Lumbar and lumbosacral spondylosis History or Present Illness: HPI: 80-year-old male returns in follow-up status post lumbar epidural steroid injection as well as bilateral facet medial branch blocks all with only limited decrease in pain for short. Patient reports pain is significant still in the low back on the right side greater than the left and is very achy and dull also with cramping and spasming on the right side patient reports tingling stabbing sharp constant severe can be unbearable with change positions walking standing right patient reports is awakened from sleep about once every 5-6 hours and is frustrated is that none of the procedures helped for very long to date. Patient reports still significant pain rates a 10 on scale 10 is worst 10 on average and a 5 at its least when he is sitting. Patient reports no bowel or bladder incontinence but still significant pain helps to some extent with the heat on the low back and stretching. Physical Exam: VS: Blood pressure is 140/68 pulse 54 respirations 18 temperature 97.6 F weight is 175 pounds PE: PHYSICAL EXAMINATION: GENERAL: The patient is awake, alert, oriented, appropriate, very pleasant in demeanor HEENT: Shows normocephalic, atraumatic. Extraocular movements are intact and symmetrical. Oral cavity: Mucous membranes are moist and pink. NECK: Shows anterior throat supple without palpable lymphadenopathy noted. Swallow reflex symmetrical. CHEST: Shows normal on inspection. Breath sounds are clear bilaterally, distant but no rales or rhonchi. HEART: Shows S1, S2 clear. No murmurs auscultated. ABDOMEN: Soft, nontender, nondistended, obese. No palpable organomegaly is noted. BACK: Shows spine grossly in the midline. Normal-appearing cervical lordotic curvature. There is slightly increased thoracic kyphosis, some minor flattening of the lumbar lordotic curvature. Lumbar paraspinous muscles show symmetrical on inspection, on palpation shows some moderate tenderness diffusely throughout the upper, middle and lower distribution of the paraspinous muscles. The patient has good rotational motion of the lumbar spine, both laterally as well as extension and flexion with some mild tenderness with extension but not with forward flexion. Paraspinous musculature shows very firm musculature on the right side compared to the left in the lower thoracic and upper lumbar distribution very firm ropelike musculature consistent with trigger point areas on the right side only left side is supple. EXTREMITIES: Lower extremities show deep tendon reflexes 1+ in the patellar and tendo calcaneus tendons. Motor exam is 5 on a scale of 5 with right dorsiflexion, extension, quadriceps and hamstring flexion and 5/5 on the left. Peripheral pulses are 1+ posterior tibial. No peripheral edema is noted bilaterally. Lower extremities are warm and dry to touch, equal in color and appearance. SKIN: Shows warm and dry, good turgor. No edema. No sores, rashes or bruising throughout. Procedure: Procedure: Options were discussed with patient. Patient's old chart was reviewed his current medication regimen updated current review of systems updated today as well. We will add medication of tizanidine 4 mg 1 to 2 tablets twice daily for muscle relaxation, also will change oxycodone to hydrocodone as he is having nausea from the oxycodone currently prescribed. Patient was given instructions well side effects aware of each of the medications. Patient will follow up in approximately 2 weeks as scheduled. Medication Injected: Med Injected: None Condition at Discharge: Condition at Discharge: Condition at discharge is stable. MARY ANN STANTON MD Jan 18, 2021 14:03
== END | disposition home or self-care (01) ==
LOC: PNCL 13:37
PROVIDERS: ATTEND Anesthesiology
DX: M51.16 Intervertebral disc disorders with radiculopathy, lumbar region (principal); M47.27 Other spondylosis with radiculopathy, lumbosacral region; M51.34 Other intervertebral disc degeneration, thoracic region; M48.54XA Collapsed vertebra, not elsewhere classified, thoracic region, initial encounter for fracture; M79.18 Myalgia, other site; I10 Essential (primary) hypertension; E78.00 Pure hypercholesterolemia, unspecified; J44.9 Chronic obstructive pulmonary disease, unspecified; K21.9 Gastro-esophageal reflux disease without esophagitis; M19.90 Unspecified osteoarthritis, unspecified site; Z87.891 Personal history of nicotine dependence; Z79.899 Other long term (current) drug therapy; Z98.890 Other specified postprocedural states; Z88.2 Allergy status to sulfonamides; Z88.8 Allergy status to other drugs, medicaments and biological substances
CPT/HCPCS: 99212; G0463

== ENCOUNTER → 2021-02-02 | Day surgery (SDC) | payer MEDICARE ==
[~2021-02-02] VITALS: Ht 180.3 cm; Wt 79.0 kg
[~2021-02-02] MED LIST changes: +EPINEPHrine 1 MG/ML VIAL INJ PRN; +LIDOCAINE 1% Multi-Dose 20 ML VIAL. INJ PRN; +PROPOFOL 10 MG/ML (20ML) VIAL. IV ONE; +TIZA-75 PO; -TIZA4TAB2 PO
[2021-02-02 11:32] VITALS: BP 179/81
[2021-02-02] MEDS: IV RINGERS,LACTATED 1000ML 1,000 ML IV SCH (11:49)
[2021-02-02] MEDS: LIDOCAINE 2% VISCOUS 100 ML BOTTLE. MM PRN (11:50)
[2021-02-02] MEDS: ALBUTEROL SULFATE 2.5 MG/3 ML NEBU. NEB PRN (11:50)
[2021-02-02] MEDS: LIDOCAINE 4% TOPICAL 50 ML SOLUTION. MM PRN (11:50)
[2021-02-02 12:46] VITALS: BP 151/70
--- NOTE | 2021-02-03 10:04 | OP ---
DATE OF SURGERY: 02/02/2021 ATTENDING PHYSICIAN: Deon Bustamante MD PROCEDURES: Bronchoscopy, bronchoalveolar lavage. INDICATIONS: The patient presented with persistent abnormal CT chest revealing mucous plugging, atelectasis and infiltrates, undergoing a diagnostic bronchoscopy. In addition, he has been severely short of breath with minimal exertion, undergoing both a diagnostic and therapeutic bronchoscopy. Risks, benefits and alternatives reviewed with the patient. He consented. SEDATION: Please see Anesthesia's notes. DESCRIPTION OF PROCEDURE: A timeout was performed prior to sedation. Vital signs and O2 saturation were maintained within normal limits throughout the procedure. Bronchoscope was then passed orally through a bite block, the patient on Eliquis, the vocal cords were identified moving bilaterally without any dysfunction. The bronchoscope was then passed through the vocal cords into the proximal trachea. There was thick mucus within the distal trachea. There was thick mucus white in color, both on the left and right segments and subsegments. The mucus was cleared away with saline. The scope was then wedged into the right lower lobe segment and bronchoalveolar lavage was performed. The return was cloudy. FINDINGS: 1. Normal vocal cords. 2. Diffuse mucosal swelling along the bronchial tubes and distal bronchi. 3. Mucous plugging bilaterally. PLAN: We will await the BAL results, the patient is to follow up in the office. The patient tolerated procedure well with no immediate complications. JUAN CARLOS DR: Katlyn TID: [id number] CC: PEGGY MCCLOUD MD
== END | disposition home or self-care (01) ==
LOC: SURG 11:04
PROVIDERS: ATTEND Internal Medicine Pulmonary Disease
DX: T17.890A Other foreign object in other parts of respiratory tract causing asphyxiation, initial encounter (principal); J44.9 Chronic obstructive pulmonary disease, unspecified; I10 Essential (primary) hypertension; I48.91 Unspecified atrial fibrillation; E78.00 Pure hypercholesterolemia, unspecified; K21.9 Gastro-esophageal reflux disease without esophagitis; M19.90 Unspecified osteoarthritis, unspecified site; Z87.891 Personal history of nicotine dependence; Z79.899 Other long term (current) drug therapy; Z98.890 Other specified postprocedural states; Z88.2 Allergy status to sulfonamides; Z88.8 Allergy status to other drugs, medicaments and biological substances; X58.XXXA Exposure to other specified factors, initial encounter; Y93.89 Activity, other specified; Y92.89 Other specified places as the place of occurrence of the external cause; Y99.8 Other external cause status
CPT/HCPCS: 31622; 31624; 36415; 87070; 87102; 87116; 87205; 87252; 87801; 88112; 88312; 94640; J0171; J2704; J3490; J7613

== ENCOUNTER → 2021-02-14 | Outpatient (CLI) | payer MEDICARE ==
[2021-02-02 12:46] VITALS: BP 151/70
[~2021-02-14] MED LIST changes: -EPINEPHrine 1 MG/ML VIAL INJ PRN; -LIDOCAINE 1% Multi-Dose 20 ML VIAL. INJ PRN; -PROPOFOL 10 MG/ML (20ML) VIAL. IV ONE
--- NOTE | 2021-02-14 12:07 | KCIC ---
EXAM: Lumbar spine, flexion and extension. HISTORY: Spondylolisthesis. COMPARISON: MRI dated 10/31/2020 FINDINGS: Lateral neutral, flexion and extension views of the lumbar spine are obtained. There is a t ransitional lumbosacral segment. This is considered L6 for this dictation. There is a rudimentary dis c at L6-S1. There is 7 mm grade 1 anterolisthesis of L5 on L6 in neutral position. This is not change between flexion and extension. There is multilevel endplate remodeling. There is disc space narrowin g and facet arthropathy predominantly at L5 to L6. There is an inferior endplate depression at L5 due to a Schmorl's node. IMPRESSION: 1. Transitional lumbosacral segment, considered L6 for this dictation. This is considered a T segment on the comparison MRI. 2. Grade 1 anterolisthesis of L5 on L6 which does not change between flexion and extension. 3. Multilevel degenerative change, primarily at L5 to L6. Electronically signed by: Maribel Perry MD (02/14/2021 11:42 AM) [id number]
== END ==
LOC: KCIC 11:03
PROVIDERS: ATTEND Neurological Surgery
DX: M47.816 Spondylosis without myelopathy or radiculopathy, lumbar region (principal); M48.061 Spinal stenosis, lumbar region without neurogenic claudication; M51.46 Schmorl's nodes, lumbar region; M43.16 Spondylolisthesis, lumbar region
CPT/HCPCS: 72100

== ENCOUNTER → 2021-03-13 | Outpatient (CLI) | payer MEDICARE ==
[2021-02-02 12:46] VITALS: BP 151/70
[~2021-03-13] MED LIST changes: +IOHEXOL 180 MG/ML 10 ML VIAL. IT ONE; +LIDOCAINE 1% Multi-Dose 20 ML VIAL. ID ONE
--- NOTE | 2021-03-13 19:08 | KCIC ---
Lumbar myelogram 03/14/2021 Clinical History: Low back pain radiates down both hips. Technique: After the risks and benefits of the procedure were explained to the patient, written infor med consent was obtained. The patient was placed prone on the fluoroscopy table and the lower back wa s prepped and draped in sterile fashion. 1% lidocaine was used as a local anesthetic. Under fluorosco pic guidance, the thecal sac of the lumbar cistern was punctured at the L3-4 level using 25-gauge Whi tacre needle. After confirming clear CSF return, 15 cc of Omnipaque 180 were injected through the nee dle into the thecal sac of the lumbar cistern under fluoroscopic guidance. Following this the needle was removed and hemostasis achieved at the puncture site. A sterile bandage was placed on the skin pu ncture site. AP, bilateral oblique, lateral and standing neutral, flexion and extension lateral digit al radiographs of the lumbar spine were obtained. Following this the patient was taken to CT where a CT scan of the lumbar spine was performed. This will be reported separately. Following the examinati ons the patient was sent home with an instruction sheet. The patient tolerated the procedure well and there were no immediate complications. The total fluoroscopic time for this procedure was 1 minute 5 1 seconds. 10 digital spot radiographs were obtained. Findings: The patient has transitional vertebral anatomy. The transitional vertebral segment is sacra lized. For the purposes of this dictation the transitional vertebrae will be referred to by the iván Rod. There is diffuse osteopenia of the visualized bony structures. Mild to moderate anterolisthesis of L5 in relation to T is seen. Degenerative changes consisting of vertebral endplate sclerosis and mild t o moderate anterior vertebral body osteophyte formation are seen throughout the lumbar disc spaces. D isc space narrowing is seen at L5-T. Mild anterior extradural defects are seen upon the contrast colu mn at L3-4 and L4-5. A moderate anterior extradural defect is seen upon the contrast column at L5-T. No complete block of contrast at any level is seen involving the lumbar spine. The alignment of the l umbar vertebrae is maintained on the flexion and extension radiographs. Atherosclerotic calcification is seen involving the abdominal aorta. Impression: 1. The patient has transitional vertebral anatomy as discussed above. 2. Degenerative changes are seen involving the mid and lower lumbar spine. Mild anterior extradural d efects are seen upon the contrast column at L3-4 and L4-5. A moderate anterior extradural defect is s een upon the contrast column at L5-T. Electronically signed by: Erasto Flowers MD (03/13/2021 7:06 PM) [id number]
--- NOTE | 2021-03-13 19:18 | KCIC ---
CT lumbar myelogram 03/13/2021 Clinical History: Low back pain which radiates down both legs. Technique: This study was performed after a lumbar myelogram, contiguous, 0.625 mm axial sections wer e obtained through the lumbar spine. 3 mm sagittal, coronal and axial reconstructed images were obtai matthieu. One or more of the following individualized dose reduction techniques were utilized for this study: 1. Automated exposure control. 2. Adjustment of the mA and/or kV according to patient size. 3. Use of iterative reconstruction technique. Findings: Comparison is made to the patient's MRI of the lumbar spine dated 11/18/2020. Additional com parison is made to the patient's lumbar myelogram performed earlier today. The sagittal and coronal reconstructed images demonstrate that the patient has transitional vertebral anatomy. For the purposes of this dictation the transitional vertebrae will be referred to by the yomaira Rod. It is sacralized. A hypoplastic disc is seen at T S1. Mild to moderate anterolisthesis of L5 in relation to T is noted. Degenerative changes consisting of vertebral endplate sclerosis and mild t o moderate anterior vertebral body osteophyte formation are seen throughout the lumbar disc spaces. D isc space narrowing and vacuum disc phenomenon are seen at L5T. Atherosclerotic calcification of the abdominal aorta and its branches is noted. At the L1-2 and L2-3 disc spaces there are minimal generalized disc bulges. Degenerative changes are seen involving the facet joints bilaterally. There is mild ligamentum flavum hypertrophy bilaterally . These findings do not result in significant central spinal canal or neural foraminal stenosis. At the L3-4 disc space there is a mild generalized disc bulge. Degenerative changes are seen involvin g the facet joints bilaterally. There is moderate ligamentum flavum hypertrophy bilaterally. These fi ndings when combined do not result in significant central spinal canal stenosis. No neural foraminal stenosis is seen. At the L4-5 disc space there is a mild generalized disc bulge. Degenerative changes are seen involvin g the facet joints bilaterally. There is moderate ligamentum flavum hypertrophy bilaterally. These fi ndings when combined result in very mild central spinal canal stenosis. No neural foraminal stenosis is seen. At the L5-T disc space there is a mild to moderate generalized disc bulge. Degenerative changes are s een involving the facet joints bilaterally. There is mild to moderate ligamentum flavum hypertrophy b ilaterally. These findings when combined with the anterolisthesis at this level result in mild centra l spinal canal stenosis. Moderate bilateral neural foraminal stenosis is seen. The T-S1 disc space is within normal limits. Impression: 1. The patient has transitional vertebral anatomy as discussed above. 2. The changes of degenerative disc disease are seen throughout the lumbar spine. These findings resu lts in very mild central spinal canal stenosis at L4-5. Mild central spinal canal stenosis is seen at L-T. Moderate bilateral neural foraminal stenosis is seen at L5-T . Electronically signed by: Erasto Flowers MD (03/13/2021 7:15 PM) [id number]
== END | disposition home or self-care (01) ==
LOC: KCIC 08:13
PROVIDERS: ATTEND Neurological Surgery
DX: M47.26 Other spondylosis with radiculopathy, lumbar region (principal); I70.0 Atherosclerosis of aorta; M48.061 Spinal stenosis, lumbar region without neurogenic claudication; I10 Essential (primary) hypertension; E78.00 Pure hypercholesterolemia, unspecified; J44.9 Chronic obstructive pulmonary disease, unspecified; K21.9 Gastro-esophageal reflux disease without esophagitis; M19.90 Unspecified osteoarthritis, unspecified site; Z87.891 Personal history of nicotine dependence; Z79.899 Other long term (current) drug therapy; Z98.890 Other specified postprocedural states; Z88.2 Allergy status to sulfonamides; Z88.8 Allergy status to other drugs, medicaments and biological substances
CPT/HCPCS: 62304; 72132; J3490; Q9965

== ENCOUNTER → 2021-04-14 | Outpatient (CLI) | payer MEDICARE ==
[2021-02-02 12:46] VITALS: BP 151/70
[~2021-04-14] MED LIST changes: -IOHEXOL 180 MG/ML 10 ML VIAL. IT ONE; -LIDOCAINE 1% Multi-Dose 20 ML VIAL. ID ONE
--- NOTE | 2021-04-14 10:47 | PDOC ---
Progress Note - Pain Clinic Date of Service: DOS: DATE: 04/14/21 TIME: 10:40 Diagnosis: Dx: Lumbar radiculopathy with lumbar degenerative disc disease lumbar and lumbosacral spondylosis Myofascial pain History or Present Illness: HPI: 80-year-old male returns status post previous lumbar epidural steroid injection as well as facet joint injections recent myelogram which were reviewed with him today and CT follow-up from his neurosurgeon patient is recently visit his neurosurgeon who is not recommending any surgery at this time as it would be a very extensive fusion by his report and is recommending other alternatives means to control pain. Patient reports still significant pain in the low back on the right side right lower extremity posterior gluteus posterior lateral thigh posterior calf to the ankle on the right side worse with standing sitting also prolonged sitting greater than 20 to 30 minutes and getting up from a seated position patient reports the pain is a 9 on scale 10 is worst average and a 3 to Sleasman is a 9 today patient reports no bowel or bladder incontinence but significant pain with walking and standing with radiation into the right lower extremity. Patient reports tingling and stabbing sharp and shooting in the back and leg on and off in intensity generally better with laying down but is been waking him from sleep about every 3-4 hours most nights. Patient reports no bowel or bladder incontinence. Patient has had previous physical therapies medication management as well as interventional techniques with the facet injections as well as epidural steroid injections with only temporary relief with all of these modalities. Physical Exam: VS: Blood pressure is 129/59 pulse 81 respiration 16 temperature 90.1 F weight is 173 pounds PE: PHYSICAL EXAMINATION: GENERAL: The patient is awake, alert, oriented, appropriate, very pleasant in demeanor HEENT: Shows normocephalic, atraumatic. Extraocular movements are intact and symmetrical. Patient wearing eyeglasses. Oral cavity: Mucous membranes moist and pink. NECK: Shows anterior throat supple without palpable lymphadenopathy noted. Swallow reflex symmetrical. CHEST: Shows normal on inspection. Breath sounds are clear bilaterally, distant but no rales rhonchi or wheezes auscultated. HEART: Shows S1, S2 clear. No murmurs auscultated. ABDOMEN: Soft, nontender, nondistended. No palpable organomegaly is noted. BACK: Shows spine grossly in the midline. Normal-appearing cervical lordotic curvature. There is mildly increased thoracic kyphosis, some flattening of the lumbar lordotic curvature. Lumbar paraspinous muscles show symmetrical on inspection, on palpation shows some moderate tenderness diffusely throughout the upper, middle and lower distribution of the paraspinous muscles without specific trigger points, without radiation of pain. The patient has good rotational motion of the lumbar spine, both laterally as well as extension and flexion without significant difficulty. EXTREMITIES: Lower extremities show deep tendon reflexes 1+ in the patellar and tendo calcaneus tendons. Motor exam is 5 on a scale of 5 with right dorsiflexion, extension, quadriceps and hamstring flexion and 5/5 on the left. Peripheral pulses are 1+ posterior tibial. No peripheral edema is noted bilaterally. Lower extremities are warm and dry to touch, equal in color and appearance. SKIN: Shows warm and dry, good turgor. No edema. No sores, rashes or bruising throughout. Procedure: Procedure: Options were discussed with the patient. Patient's chart reviews his current medication regimen updated current review of systems updated today as well. We discussed a spinal cord stimulation and patient is very interested in pursuing this as an alternative to surgery. Again patient with history of therapy medication management interventional techniques without significant long-lasting pain control and significant pain remaining in the low back and right leg radicular pattern and L5-S1 dermatomal distribution. Patient is given information regarding a spinal cord stimulation to review and we discussed the techniques and procedure using anatomical models as well as descriptions. Patient will first have psychological evaluation as he would like to pursue spinal cord stimulator trial. Medication Injected: Med Injected: None Condition at Discharge: Condition at Discharge: Condition at discharge is stable. MARY ANN STANTON MD Apr 14, 2021 10:47
== END | disposition home or self-care (01) ==
LOC: PNCL 10:08
PROVIDERS: ATTEND Anesthesiology
DX: M51.16 Intervertebral disc disorders with radiculopathy, lumbar region (principal); M47.27 Other spondylosis with radiculopathy, lumbosacral region; M47.26 Other spondylosis with radiculopathy, lumbar region; M79.18 Myalgia, other site; I10 Essential (primary) hypertension; E78.00 Pure hypercholesterolemia, unspecified; K21.9 Gastro-esophageal reflux disease without esophagitis; J44.9 Chronic obstructive pulmonary disease, unspecified; M19.90 Unspecified osteoarthritis, unspecified site; Z87.891 Personal history of nicotine dependence; Z79.899 Other long term (current) drug therapy; Z98.890 Other specified postprocedural states; Z88.8 Allergy status to other drugs, medicaments and biological substances
CPT/HCPCS: 99212; G0463

== ENCOUNTER → 2021-05-30 | Outpatient (CLI) | payer MEDICARE ==
[2021-02-02 12:46] VITALS: BP 151/70
--- NOTE | 2021-05-30 15:54 | PDOC ---
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 Patient had psychiatric valuation and is cleared for a spinal cord stimulator temporary leads placement today. Patient would like to proceed. Patient reports still significant pain in the low back especially on the right side and on the left side of the mid back patient reports a 9 on scale 10 is worse over the past week 8 on average 5 to Sleasman is a 7 today patient ports sharp and stabbing on the right side and radiating the posterior gluteus posterior thigh lateral thigh anterior thigh medial thigh and medial lower leg patient reports again worse on the right side than left but present on the left in the mid back patient reports is worse with standing walking changing position s generally better with laying down but wakes him up from sleep and this is is about once a night every 4-5 hours or so. Patient reports no bowel or bladder incontinence. Physical Exam: VS: Blood pressure is 142/60 pulse 63 respirations 18 temperature 97.6 F weight is 173 pounds. PE: PHYSICAL EXAMINATION: GENERAL: The patient is awake, alert, oriented, appropriate, very pleasant in demeanor HEENT: Shows normocephalic, atraumatic. Extraocular movements are intact and symmetrical. NECK: Shows anterior throat supple without palpable lymphadenopathy noted. Swallow reflex symmetrical. CHEST: Shows normal on inspection. Breath sounds are clear bilaterally. HEART: Shows S1, S2 clear. No murmurs auscultated. ABDOMEN: Soft, nontender, nondistended. No palpable organomegaly is noted. BACK: Shows spine grossly in the midline. Normal-appearing cervical lordotic curvature. There is slightly increased thoracic kyphosis, some minor flattening of the lumbar lordotic curvature. Lumbar paraspinous muscles show symmetrical on inspection, on palpation shows some moderate tenderness diffusely throughout the upper, middle and lower distribution of the paraspinous muscles, but without specific trigger points, without radiation of pain. The patient has good rotational motion of the lumbar spine, both laterally as well as extension and flexion without significant difficulty. No tenderness over the spinous processes, sacrum or sacroiliac regions. EXTREMITIES: Lower extremities show deep tendon reflexes 1 in the patellar and tendo calcaneus tendons. Motor exam is 5 on a scale of 5 with right dorsiflexion, extension, quadriceps and hamstring flexion and 5/5 on the left. Peripheral pulses are 1+ posterior tibial. No peripheral edema is noted bilaterally. Lower extremities are warm and dry to touch, equal in color and appearance. SKIN: Shows warm and dry, good turgor. No edema. No sores, rashes or bruising throughout. Procedure: Procedure: Options were discussed with the patient. Patient's old chart was viewed as her current medication regimen updated current review of systems updated today as well. We will proceed with spinal cord stimulator temporary leads placement x2 with fluoroscopic guidance. Risks were discussed including but not limited to: Bleeding, infection, possibility of epidural hematoma and subsequent neurological compromise, dural puncture, headaches, spinal cord and/or nerve damage, and poor results regarding pain control. Patient understands and wished to proceed. Patient return to clinic in approximately 1 week for follow-up for removal of this temporary leads and reevaluation of patient's pain level at that time. Medication Injected: Med Injected: Under sterile prep and drape patient in prone position using C-arm fluoroscopic guidance patient's lumbar spine was identified and vertebral levels were counted did put external marker on the T8 level. This time the lumbar spine was revi sualized and using 1% lidocaine, the area over the L 4 5 level was anesthetized and then using a 14-gauge Neomatrixtead needle with stylette was entered to the epidural space at the L 3 4 level using a paramedian approach to the right with preservative-free normal saline xsey-iv-khetilodgg technique aspiration was noted to be negative and using direct fluoroscopy visualization spinal cord stimulator lead was then advanced without significant resistance in the midline and confirmed posterior with both AP and lateral views, and advanced to the superior endplate of the T8 vertebral level superimposed with the superior spinal cord stimulator electrode lead. Fluoroscopy was used in a lateral view to verify posterior placement in the epidural space at this point as well. At this time a second lead was then introduced in similar fashion at the L 4 5 level and inserted and in the epidural space at the L 3 4 level once again with preservative-free normal saline oyqc-pj-pauliddmwj technique. Aspiration was again noted to be negative and using direct visualization with fluoroscopy second lumbar spinal cord stimulator lead was advanced without significant resistance in the midline with the superior electrode superimposed over the superior endplate of the T9 vertebral body. Lateral visualization was again confirmed with placement of the stimulator in the posterior epidural space. At this time the needles and stylette were removed with intermittent fluoroscopic visualization maintaining that the leads had not moved during this process and this was confirmed. This time 1% lidocaine was used to anesthetize the skin next to the insertion sites of the stimulator wires and using a 2-0 silk were then sutured in place. Mastisol and Tegaderm was then applied as well as reinforcing tape and gauze. Patient was transferred to the recovery area under his own power walking without difficulty and had no immediate complications from the procedure. Stimulation was then carried out with [facility] representatives. Patient will return to the clinic in approximately 1 week for removal of the temporary leads and reassessment of the patient's pain level. Condition at Discharge: Condition at Discharge: Condition at discharge stable, patient tolerated the procedure well and had no complications. MARY ANN STANTON MD May 30, 2021 15:54
== END | disposition home or self-care (01) ==
LOC: PNCL 13:58
PROVIDERS: ATTEND Anesthesiology
DX: M51.16 Intervertebral disc disorders with radiculopathy, lumbar region (principal); M47.27 Other spondylosis with radiculopathy, lumbosacral region; M51.34 Other intervertebral disc degeneration, thoracic region; I10 Essential (primary) hypertension; E78.00 Pure hypercholesterolemia, unspecified; J44.9 Chronic obstructive pulmonary disease, unspecified; K21.9 Gastro-esophageal reflux disease without esophagitis; M19.90 Unspecified osteoarthritis, unspecified site; Z87.891 Personal history of nicotine dependence; Z79.899 Other long term (current) drug therapy; Z98.890 Other specified postprocedural states; Z88.2 Allergy status to sulfonamides; Z88.8 Allergy status to other drugs, medicaments and biological substances
CPT/HCPCS: 63650; C1897

== ENCOUNTER → 2021-06-02 | Outpatient (CLI) | payer MEDICARE ==
[2021-02-02 12:46] VITALS: BP 151/70
[~2021-06-02] MED LIST changes: +IOHEXOL 300 MG/ML 100ML VIAL. IV ONE
--- NOTE | 2021-06-05 08:22 | KCIC ---
PQRS Compliance Statement: One or more of the following individualized dose reduction techniques were utilized for this examinat ion: 1. Automated exposure control 2. Adjustment of the mA and/or kV according to patient size 3. Use of iterative reconstruction technique CTA CHEST_ABDOMEN_AND PELVIS Clinical Indication: Reason: Evaluate thoracic aorta dissection. Comparison: CTA chest with contrast January 01, 2020. Technique: Helical CT imaging of the chest, abdomen, and pelvis is performed after 100 cc of Omnipaqu e [address] angiogram protocol. 3-D MIP and volume rendering reconstructions of the ao rta. 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 The dissection involves the proximal left sub clavian artery, unchanged. There is a sliver of contrast enhancement at the aortic arch which is new from the prior study, for example image 106. The aortic arch branches are patent. The left vertebral artery arises directly from the aortic arch, a normal variant. The true lumen supplies the celiac art mike, SMA, and left renal artery and 2 right renal arteries and the OSEI. The dissection extends into t he right common iliac artery but not the left. The dissection ends at the origin of the left external iliac artery. There is no central pulmonary embolus. There are prominent bronchial arteries in the mediastinum, unc hanged. The thyroid is symmetric. There is no mediastinal adenopathy. There is mediastinal shift to t he left, unchanged. Coronary artery disease. Cardiac size is normal, no pericardial effusion. There is small left pleural effusion, increased from prior study. There are retained secretions or mu cous in the trachea. There are several tree-in-bud opacities in the right lung base, increased from p rior study. There is stenosis of the left lower lobe bronchus with complete collapse of the left lowe r lobe, increased from prior study. There is peribronchial thickening in the left upper lobe, similar to prior study. The liver, gallbladder, spleen, pancreas, and adrenal glands are normal. Small renal cysts do not req uire follow-up. There is no hydronephrosis. The stomach is unremarkable. There is no small bowel obstruction. The appendix is normal. There is no colon wall thickening. The urinary bladder is normal. Prostate size upper limits of normal. No pelvic free fluid is seen. Qu estion small fat-containing left inguinal hernia. There is a right lower back external battery pack and there are spinal stimulator leads terminating i n the midthoracic spine. There is chronic compression fracture of the T7 vertebral body. There is com pression fracture at the superior endplate of the T10 vertebral body that is new from the prior study , appears subacute to chronic. There is sclerosis along the superior endplate. There is no significan t retropulsion. There is unchanged grade 1 anterolisthesis near the lumbosacral junction, unchanged. IMPRESSION: 1. 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 The dissection involves the proximal left subcl odell artery and the right common iliac artery. The dissection ends at the origin of the right body team member al iliac artery. 2. There is small left pleural effusion, increased from prior study. 3. There is stenosis of the left lower lobe bronchus with complete collapse of the left lower lobe, increased from prior study. There is left upper lobe peribronchial thickening suggesting bronchitis. There are tree-in-bud opacities in the right lung base that have increased from prior study, probably infectious/inflammatory. 4. There is subacute to chronic compression fracture at the superior endplate of the T10 vertebral b carin. Electronically signed by: Valentin Fernandez MD (06/05/2021 8:20 AM) [id number]
== END ==
LOC: KCIC CT 11:00
PROVIDERS: ATTEND Thoracic Surgery (Cardiothoracic Vascular Surgery)
DX: I71.01 Dissection of thoracic aorta (principal); J90 Pleural effusion, not elsewhere classified; J98.09 Other diseases of bronchus, not elsewhere classified; M48.54XA Collapsed vertebra, not elsewhere classified, thoracic region, initial encounter for fracture; M43.17 Spondylolisthesis, lumbosacral region
CPT/HCPCS: 71275; 74177; 82565; Q9967

== ENCOUNTER → 2021-06-06 | Outpatient (CLI) | payer MEDICARE ==
[2021-02-02 12:46] VITALS: BP 151/70
[~2021-06-06] MED LIST changes: -IOHEXOL 300 MG/ML 100ML VIAL. IV ONE
--- NOTE | 2021-06-06 14:54 | PDOC ---
Progress Note - Pain Clinic Date of Service: DOS: DATE: 06/06/21 TIME: 14:49 Diagnosis: Dx: Lumbar radiculopathy with lumbar degenerative disc disease and lumbar and lumbosacral spondylosis Compression fracture T10 History or Present Illness: HPI: 80-year-old male returns for follow-up status post medical stimulator placement temporary leads 1 week ago. Patient reports 80% better after the trial but has a new pain that is in the mid back which was not affected with the trial stimulator. Patient reports 3 on scale 10 is worst over the past week to an average to its least and is a 2 today with the pain in the low back and the bilateral lower extremities the new pain however is in the mid back and patient did have a CT scan done on the fourth of this month we reviewed that with him today showing subacute to chronic compression fracture at the superior endplate of the T10 vertebral body which correlates very precisely to the area where he reports pain mostly with sitting with his back against the back of a chair or a softer back of a couch still painful also painful with driving just in the specific area without radiation. Patient reports regarding the stimulator he feels 80% better with the lower back and legs and is very pleased with the outcome of the trial. We discussed permanent placement but first will have the compression fracture evaluated for possible vertebroplasty or kyphoplasty. Patient reports no new motor or sensory deficits no bowel or bladder incontinence. Physical Exam: VS: Blood pressure is 126/76 pulse 81 respirations 18 temperature 98.1 F height 5 foot 11 inches weight 175 pounds. PE: PHYSICAL EXAMINATION: GENERAL: The patient is awake, alert, oriented, appropriate, very pleasant in demeanor HEENT: Shows normocephalic, atraumatic. Extraocular movements are intact and symmetrical. NECK: Shows anterior throat supple without palpable lymphadenopathy noted. Swallow reflex symmetrical. CHEST: Shows normal on inspection. Breath sounds are clear bilaterally, no rales rhonchi or wheezes auscultated. HEART: Shows S1, S2 clear. No murmurs auscultated. ABDOMEN: Soft, nontender, nondistended. No palpable organomegaly is noted. BACK: Shows spine grossly in the midline. Normal-appearing cervical lordotic curvature. There is slightly increased thoracic kyphosis, some minor flattening of the lumbar lordotic curvature. Lumbar paraspinous muscles show symmetrical on inspection, on palpation shows some moderate tenderness diffusely throughout the upper, middle and lower distribution of the paraspinous muscles without specific trigger points, without radiation of pain. The patient has good rotational motion of the lumbar spine, both laterally as well as extension and flexion without significant difficulty. Patient has significant tenderness over the mid back roughly over the T10 distribution where compression fracture is noted on CT scan. EXTREMITIES: Lower extremities show deep tendon reflexes 1+ in the patellar and tendo calcaneus tendons. Motor exam is 5 on a scale of 5 with right dorsiflexion, extension, quadriceps and hamstring flexion and 5/5 on the left. Peripheral pulses are 1+ posterior tibial. No peripheral edema is noted bilaterally. Lower extremities are warm and dry to touch, equal in color and ap pearance. SKIN: Shows warm and dry, good turgor. No edema. No sores, rashes or bruising throughout. Procedure: Procedure: Options were discussed with the patient. Patient's old chart was reviewed his current medication regimen updated current review of systems updated today as well. We will remove patient's spinal cord stimulator leads today under sterile prep and drape sutures were removed and leads removed with tips intact x2 site clean and dry no erythema no tenderness no exudate or drainage. Sterile bandage was applied. Regarding patient's T10 compression fracture will refer for evaluation for vertebroplasty or kyphoplasty with interventional radiology. Patient will follow up after interventional radiology evaluation for discussion regarding pain control of this region as well as possible permanent spinal cord stimulator system placement. Medication Injected: Med Injected: None Condition at Discharge: Condition at Discharge: Condition at discharge is stable. MARY ANN STANTON MD Jun 06, 2021 14:54
== END | disposition home or self-care (01) ==
LOC: PNCL 13:53
PROVIDERS: ATTEND Anesthesiology
DX: M51.16 Intervertebral disc disorders with radiculopathy, lumbar region (principal); M47.816 Spondylosis without myelopathy or radiculopathy, lumbar region; M47.817 Spondylosis without myelopathy or radiculopathy, lumbosacral region; I10 Essential (primary) hypertension; E78.00 Pure hypercholesterolemia, unspecified; J44.9 Chronic obstructive pulmonary disease, unspecified; K21.9 Gastro-esophageal reflux disease without esophagitis; M19.90 Unspecified osteoarthritis, unspecified site; Z87.891 Personal history of nicotine dependence; Z79.899 Other long term (current) drug therapy; Z98.890 Other specified postprocedural states; Z88.2 Allergy status to sulfonamides; Z88.8 Allergy status to other drugs, medicaments and biological substances
CPT/HCPCS: 99212; G0463

== ENCOUNTER → 2021-08-17 | Outpatient (CLI) | payer MEDICARE ==
[2021-08-06 11:00] VITALS: BP 130/53
--- NOTE | 2021-08-18 16:16 | CARD ---
MR#: [id number] Date of Study: 08/17/2021 Ordering Physician: ALYSHA BOWER, Referring Physician: Juan M BRYANT: [facility] APPROVED REPORT EXAM: Two-dimensional and M-mode echocardiogram with Doppler and color Doppler. Other Information Quality : GoodHR: 65bpm Rhythm : NSR INDICATION Atrial Fibrillation 2D DIMENSIONS RVDd2.8 (2.9-3.5cm)Left Atrium(2D)3.5 (1.6-4.0cm) IVSd0.9 (0.7-1.1cm)Aortic Root(2D)3.4 (2.0-3.7cm) LVDd4.3 (3.9-5.9cm)LVOT Diameter2.4 (1.8-2.4cm) PWd0.8 (0.7-1.1cm)LVDs3.0 (2.5-4.0cm) FS (%) 28.4 %SV44.6 ml LVEF(%)55.2 (>50%) Aortic Valve AoV Peak Ronal.181.0cm/sAoV VTI43.0cm AO Peak GR.13.1mmHgLVOT Peak Ronal.127.2cm/s AO Mean GR.7mmHgAVA (VMAX)3.05cm2 Mitral Valve MV E Bigtlrka50.8cm/sMV DECEL [id number] MV A Hjnlifmt34.3cm/sE/A Ratio0.9 Tricuspid Valve TR P. Rgxvehqk124vt/sRAP [id number] TR Peak Gr.34kjKyUAMH91htXn Pulmonary Vein S1 Opbdociv92.2cm/sD2 Hnchjjwk71.5cm/s PVa [id number] LEFT VENTRICLE The left ventricle is normal size. There is normal left ventricular wall thickness. The left ventricl e systolic function normal. The Ejection Fraction is 60-65%. There is normal LV segmental wall motion . The left ventricular diastolic function is normal. No left ventricle thrombus noted on this study. There is no ventricular septal defect visualized. There is no left ventricular aneurysm. There is no mass noted in the left ventricle. RIGHT VENTRICLE The right ventricle is normal size. There is normal right ventricular wall thickness. The right ventr icular systolic function is normal. ATRIA The left atrium is borderline dilated. 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 The interatrial s eptum is intact with no evidence for an atrial septal defect or patent foramen ovale as noted on 2-D or Doppler imaging. AORTIC VALVE The aortic valve is tri-cuspid. Doppler and Color Flow revealed mild to moderate aortic regurgitation . There is no aortic valvular stenosis. There is no aortic valvular vegetation. MITRAL VALVE The mitral valve is normal in structure and function. There is no evidence of mitral valve prolapse. There is no mitral valve stenosis. There is no mitral valve regurgitation noted. TRICUSPID VALVE The tricuspid valve is normal in structure and function. There is no tricuspid valve regurgitation no lorri. There is no tricuspid valve prolapse or vegetation. There is no tricuspid valve stenosis. PULMONIC VALVE The pulmonary valve is normal in structure and function. There is no pulmonic valvular regurgitation. There is no pulmonic valvular stenosis. GREAT VESSELS The aortic root is normal in size. The ascending aorta is normal in size. The pulmonary artery is nor mal. The IVC is normal in size and collapses >50% with inspiration. PERICARDIAL EFFUSION There is no pleural effusion. There is no evidence of significant pericardial effusion. Critical Notification Critical Value: No <Conclusion> The left ventricle systolic function normal. The Ejection Fraction is 60-65%. There is normal LV segmental wall motion. Mild to moderate aortic regurgitation. There is no evidence of significant pericardial effusion. Signed by : Alysha Bower, Electronically Approved : 08/18/2021 16:16:29
== END ==
LOC: ECHO 13:39
PROVIDERS: ATTEND Internal Medicine Cardiovascular Disease
DX: I35.1 Nonrheumatic aortic (valve) insufficiency (principal); I48.0 Paroxysmal atrial fibrillation
CPT/HCPCS: 93306; C8929